=== PATIENT | female | born 1975 | race African-American/Black ===

== ENCOUNTER 2020-11-02 18:58 | Emergency (ER) | payer OTHER ==
[~2020-11-02] VITALS: Ht 170.2 cm; Wt 104.3 kg
--- NOTE | 2020-11-02 19:33 | NUR ---
TO LOBBY A/W BED AMBULATORY
[2020-11-02 20:20] LABS: HEMATOCRIT 34.7 % (36-48); HEMOGLOBIN 11.5 g/dL (12.0-16.0); MEAN CORPUSCULAR HEMOGLOBIN 31 pg (27-31); MEAN CORPUSCULAR HGB CONC 33 g/dL (33-37); MEAN CORPUSCULAR VOLUME 93.6 fL (80-94); PLATELET COUNT (AUTO) 354 K/uL (140-450); RED BLOOD CELL COUNT(AUTO) 3.71 MIL/uL (4.20-5.40); RED CELL DISTRIBUTION WIDTH 22.3 % (11.6-13.7); WHITE BLOOD COUNT (AUTO) 6.3 K/uL (4.8-10.8)
[2020-11-02] MEDS ORDERED: ONDANSETRON 4 MG/2 ML VIAL IVP ONE (20:35)
[2020-11-02] MEDS ORDERED: LACTATED RINGERS 1,000 ML IV ONE (20:35)
[2020-11-02] MEDS ORDERED: HYDROmorphone PFS 2 MG/ML SYR IVP ONE (20:35)
[2020-11-02 20:38] LABS: PROTHROMBIN TIME 9.7 secs (10.8-13.4)
[2020-11-02 20:41] LABS: ALBUMIN 3.8 g/dL (3.4-5.0); ANION GAP 14.2 (8-16); CARBON DIOXIDE 21.6 mmol/L (21-32); CREATININE 0.9 mg/dL (0.6-1.3); POTASSIUM 3.8 mmol/L (3.5-5.1); TOTAL BILIRUBIN 0.1 mg/dL (0.0-1.0)
--- NOTE | 2020-11-02 20:50 | NUR ---
PT AMBULATED TO [facility].
--- NOTE | 2020-11-02 21:00 | NUR ---
PROVIDED UA SAMPLE.
--- NOTE | 2020-11-02 21:28 | NUR ---
45 Y/O FEMALE BIB SELF FOR C/O OF RADIATING "SHARP" L SIDE ABD PAIN 10/10. RADIATES TO BACK L SIDE. ABD WAS ROUND SOFT, NON-TENDER TO TOUCH. BOWELS SOUNDS WERE ACTIVE X 4 QUADRANTS. REPORTS NO CHANGES IN BOWEL MOVEMENTS. REPORTS HAVING MILD NAUSEA. NO DIZZINESS OR VOMITING. DENIES TAKING ANY MEDS PRIOR TO ED VISIT. PMHX: PANCRETITIS, ANEMIA, THALASEMIA, GASTRIC BYPASS AND SICKLE CELL DISEASE. ALLX: ATORVASTATIN, BACLOFEN AND MORPHINE
--- NOTE | 2020-11-02 21:50 | NUR ---
20 G IV SITE TO L UPPER ARM VIA US GUIDED. IV SITE WAS PATENT. NO INFILTARTION NOTED OR C/O DISCOMFORT. FLUSHED WITH 10 ML OF 0.9%.
--- NOTE | 2020-11-02 22:33 | NUR ---
NOTIFIED DR. MCKINNEY OF PT'S C/O UNRELIEF PAIN AT THIS TIME. ER MD DR. MCKINNEY SPOKE WITH PT. NO NEW ORDERS GIVEN AT THIS TIME.
[2020-11-02 23:06] LABS: MONOCYTES % (MANUAL) 5 % (5-12)
[2020-11-02 23:07] LABS: EOSINOPHILS % (MANUAL) 10 % (0-4); LYMPHOCYTES % (MANUAL) 25 % (20-46)
--- NOTE | 2020-11-02 23:23 | NUR ---
Patient discharged with v/s stable. Written and verbal after care instructions given and explained. Patient alert, oriented and verbalized understanding of instructions. Ambulatory with steady gait. All questions addressed prior to discharge. ID band removed. Patient advised to follow up with PMD. Rx of ZOFRAN ODT given. Patient educated on indication of medication including possible reaction and side effects. Opportunity to ask questions provided and answered. IV removed, catheter intact and site benign. Applied folded 4x4 gauze and tape to stop bleeding.
[2020-11-02 23:25] VITALS: BP 144/87
== END 2020-11-02 23:25 | disposition home or self-care (01) ==
LOC: MED 18:58
DX: R10.13 Epigastric pain (principal); D57.1 Sickle-cell disease without crisis; Z87.19 Personal history of other diseases of the digestive system; Z88.6 Allergy status to analgesic agent; Z88.5 Allergy status to narcotic agent; Z88.8 Allergy status to other drugs, medicaments and biological substances
CPT/HCPCS: 36415; 80053; 83690; 84702; 85025; 85610; 86886; 86900; 86901; 96361; 96374; 96375; 99284; J1170; J2405

== ENCOUNTER 2021-08-27 21:43 | Inpatient (IN) | payer OTHER, SELFPAY ==
[~2021-08-27] VITALS: Ht 170.2 cm; Wt 108.9 kg
[2021-08-27 21:45] VITALS: BP 155/94
[2021-08-27 22:24] LABS: BASOPHILS # (AUTO) 0.1 K/uL (0.00-0.22); EOSINOPHILS # (AUTO) 0.1 K/uL (0-0.4); EOSINOPHILS % (AUTO) 1.3 % (0.0-4.0); HEMATOCRIT 33.3 % (36-48); HEMOGLOBIN 10.8 g/dL (12.0-16.0); LYMPHOCYTES # (AUTO) 1.8 K/uL (2.5-16.5); LYMPHOCYTES % (AUTO) 24.6 % (20.5-51.1); MEAN CORPUSCULAR HEMOGLOBIN 29 pg (27-31); MEAN CORPUSCULAR HGB CONC 33 g/dL (33-37); MEAN CORPUSCULAR VOLUME 87.8 fL (80-94); MONOCYTES # (AUTO) 0.3 K/uL (0.8-1.0); MONOCYTES % (AUTO) 3.8 % (1.7-9.3); NEUTROPHILS # (AUTO) 5.1 K/uL (1.8-7.7); NEUTROPHILS % (AUTO) 69.3 % (42.2-75.2); PLATELET COUNT (AUTO) 854 K/uL (140-450); RED BLOOD CELL COUNT(AUTO) 3.79 MIL/uL (4.20-5.40); RED CELL DISTRIBUTION WIDTH 19.4 % (11.6-13.7); WHITE BLOOD COUNT (AUTO) 7.3 K/uL (4.8-10.8)
--- NOTE | 2021-08-27 22:27 | NUR ---
PT PRESENTED TO THE ED FOR PRE OP CHECK IN FOR HYSTERECTOMY, PT STATED "HAVING 10 OF 10 PAIN RADIATING THROUGHOUT PELVIS, GROIN, ABD AND BACK", NO OTHER SIGNS OF ACUTE DISTRESS NOTED AT THIS TIME PMH: ENDOMETRIOSIS, GASTRIC BYPASS, 3 C SECTIONS ALLERGIES: ADVAR, ATORVASTATIN, BACLOFEN, MORPHINE
[2021-08-27 22:42] LABS: ALBUMIN 3.9 g/dL (3.4-5.0); ANION GAP 14.6 (8-16); CARBON DIOXIDE 24.4 mmol/L (21-32); CREATININE 1.2 mg/dL (0.6-1.3); TOTAL BILIRUBIN 0.3 mg/dL (0.0-1.0)
[2021-08-28 00:08] LABS: PROTHROMBIN TIME 9.5 secs (10.8-13.4)
[2021-08-28] MEDS ORDERED: HYDROmorphone PFS 2 MG/ML SYR IVP ONE (00:30)
[2021-08-28] MEDS ORDERED: ONDANSETRON 4 MG/2 ML VIAL IVP ONE (00:30)
[2021-08-28] MEDS ORDERED: LACTATED RINGERS 1,000 ML IV ONE (00:55)
[2021-08-28] MEDS ORDERED: POTASSIUM CHLORIDE 10 MEQ TABER PO PRN (01:00)
[2021-08-28] MEDS ORDERED: ACETAMINOPHEN 325 MG TAB PO PRN (01:00)
[2021-08-28] MEDS ORDERED: MAGNESIUM OXIDE 400 MG TAB PO PRN (01:00)
[2021-08-28] MEDS ORDERED: TOP100 PO (01:45)
[2021-08-28] MEDS ORDERED: ZOLP10TA1 PO (01:45)
[2021-08-28] MEDS ORDERED: TIZA4CAP PO (01:45)
[2021-08-28] MEDS ORDERED: HYDR500C PO (01:45)
[2021-08-28] MEDS ORDERED: LYR75 PO (01:45)
[2021-08-28] MEDS ORDERED: ACET-5636 PO (01:45)
[2021-08-28] MEDS ORDERED: DIPH25SG5 PO (01:45)
--- NOTE | 2021-08-28 01:55 | NUR ---
RECEIVED TELEPHONE REPORT FROM METAL MODEL BUILDERPITER SMITH.
--- NOTE | 2021-08-28 01:56 | NUR ---
REPORT FOR ADMIT GIVEN TO MST PITER VINES, PT WILL BE ADMITTED TO ROOM 111B
[2021-08-28 02:33] VITALS: BP 156/100
--- NOTE | 2021-08-28 02:33 | NUR ---
PATIENT WAS BROUGHT TO THE FLOOR VIA WHEELCHAIR. AMBULATED TO BED WITH STEADY GAIT. PT IS AAOX4, AMBULATORY AND ABLE TO MAKE NEEDS KNOWN. C/C PELVIC PAIN HX ENDOMETRIOSIS CAME IN PER RECOMMENDATION OF DR PURCELL HAS SURGERY TITUS TODAY 08/28 AT 0730 FOR HYSTERECTOMY. PT VERBALIZED UNDERSTANDING. LAST MEAL AT 2200 NPO SINCE MIDNIGHT. SKIN IS WARM, DRY AND INTACT. RESPIRATIONS ARE EQUAL AND UNLABORED ON ROOM AIR. IV ON LAC 20G. MRSA SWAB OBTAINED AND SENT TO LAB. ORIENTED PATIENT TO ROOM, STAFF, VISITING HOURS, AND CALL LIGHT. VSS. CALL LIGHT IS WITHIN REACH. WILL CONTINUE TO MONITOR.
--- NOTE | 2021-08-28 02:34 | NUR ---
Patient will be admitted to care of DR GRANGER. Admited to [facility]. Will go to room 111A. Belongings list completed. Report to PITER VINES.
[2021-08-28] MEDS: HYDROmorphone PFS 2 MG/ML SYR IVP PRN ×3 (02:46→16:34)
--- NOTE | 2021-08-28 02:46 | NUR ---
PRN DILAUDID GIVEN FOR C/C ABD PAIN / PT TOLERATED WELL.
[2021-08-28] MEDS: NACL 0.9% 1,000 ML IV SCH ×2 (02:54→13:30)
--- NOTE | 2021-08-28 05:36 | NUR ---
PT IS RESTING IN BED APPEARS TO BE ASLEEP. CHEST RISE AND FALL NOTED. CALL LIGHT IS WITHIN REACH.
--- NOTE | 2021-08-28 07:28 | NUR ---
RECEIVED REPORT FROM BOTTOM WORKER NURSE FOR CONTINUITY OF CARE, POC DISCUSSED. PT IS RESTING IN BED WITH DAUGHTER AT BEDSIDE. PT SCHEDULED FOR SURGERY AT 0730. PT IS ALERT AND ORIENTED X4, ON RA WITH CHEST RISING AND FALLING EVEN AND UNLABORED. PT IS MED SURG IN STABLE CONDITION. PT SKIN INTACT. PT HAS A LEFT AC 20G RUNNING NS @ 80 ML. ALL SAFETY MEASURES IN PLACE, CALL LIGHT WITHIN REACH. WILL CONTINUE TO MONITOR.
--- NOTE | 2021-08-28 07:28 | NUR ---
GAVE BEDSIDE REPORT TO DAY RN. PT ENDORSED IN STABLE CONDITION.
--- NOTE | 2021-08-28 07:56 | NUR ---
NONE ADMINISTERED HEP MEDICATION DUE TO TITUS PROCEDURE AT 0730. ALL SAFETY MEASURES IN PLACE. CALL LIGHT WITHIN REACH. WILL CONTINUE TO MONITOR.
[2021-08-28 08:00] VITALS: BP 109/81
--- NOTE | 2021-08-28 08:17 | NUR ---
ROUNDED ON PT, PT IS ASLEEP IN BED WITH NO ACUTE S/S OF DISTRESS. PT CHEST RISING AND FALLING EVEN AND UNLABORED. PT DAUGHTER AT BEDSIDE. COMMUNICATION BOARD UPDATED. ALL SAFETY MEASURES IN PLACE, CALL LIGHT WITHIN REACH. WILL CONTINUE TO MONITOR
--- NOTE | 2021-08-28 08:50 | NUR ---
PRN PAIN MEDICATION ADMINISTERED PER MD ORDER, PT TOLERATED ADMINISTRATION. PT IS STABLE IN BED. ALL SAFETY MEASURES IN PLACE, CALL LIGHT WITHIN REACH. WILL CONTINUE TO MONITOR.
--- NOTE | 2021-08-28 09:16 | NUR ---
PATIENT HAS BEEN SCREENED AND CATEGORIZED LOW NUTRITION RISK. PATIENT WILL BE SEEN WITHIN 7 DAYS OF ADMISSION. 09/03/[address]
--- NOTE | 2021-08-28 09:52 | NUR ---
PT HAS BEEN PICKED UP AND TAKEN TO THE OR IN STABLE CONDITION.
[2021-08-28] MEDS ORDERED: diphenhydrAMINE 50 MG/ML VIAL IVP PRN ×2 (12:20→12:55)
[2021-08-28] MEDS: LACTATED RINGERS 1,000 ML IV SCH ×2 (12:20→20:40)
[2021-08-28] MEDS ORDERED: MEPERIDINE 25 MG/ML SYR IVP PRN (12:20)
[2021-08-28] MEDS ORDERED: ONDANSETRON 4 MG/2 ML VIAL IVP PRN ×2 (12:20→12:55)
[2021-08-28] MEDS ORDERED: fentaNYL citrate 0.05 MG/ML VIAL IVP PRN (12:20)
[2021-08-28] MEDS ORDERED: PROPOFOL 200 MG/20 ML VIAL IV ONE (12:49)
[2021-08-28] MEDS ORDERED: PHENYLEPHRINE 10 MG/ML VIAL ONE (12:49)
[2021-08-28] MEDS ORDERED: LIDOCAINE 2% 100 MG/5 ML SYR IVP ONE (12:49)
[2021-08-28] MEDS ORDERED: ONDANSETRON 4 MG/2 ML VIAL ONE (12:49)
[2021-08-28] MEDS ORDERED: SUCCINYLCHOLINE CHLORIDE 200 MG/10 ML VIAL IVP ONE (12:49)
[2021-08-28] MEDS ORDERED: METOCLOPRAMIDE 10 MG/2 ML INJ VIAL ONE (12:49)
[2021-08-28] MEDS ORDERED: NEOSTIGMINE 1:1000 10 MG/10 ML VIAL ONE (12:49)
[2021-08-28] MEDS ORDERED: GLYCOPYRROLATE 0.2 MG/ML VIAL ONE (12:49)
[2021-08-28] MEDS ORDERED: ROCURONIUM 50 MG/5 ML VIAL IV ONE (12:49)
[2021-08-28] MEDS ORDERED: NALOXONE 0.4 MG/ML VIAL IVP PRN ×2 (12:55)
[2021-08-28] MEDS ORDERED: SIMETHICONE 80 MG TAB.CHEW PO PRN (13:30)
--- NOTE | 2021-08-28 13:36 | NUR ---
DC PLANNING: THE PATIENT ADMITTED THROUGH THE ER WITH C/O WORSENING PELVIC PAIN SECONDARY TO ENDOMETRIOSIS. THE PATIENT WAS SCHEDULED TO HAVE A HYSTERECTOMY TOMORROW AND WAS DIRECTED BY HER CLIP RIVETER TO COME TO THE ER. SHE ALSO HAS A H/O SICKLE CELL DISEASE WITH MULTIPLE HOSPITALIZATIONS AT [facility]. THE PATIENT WENT TO SURGERY TODAY AND HAD A YUMIKO/BSO, IVF'S AND PAIN MEDS ORDERED FOR POST-OP MANAGEMENT. ANTICIPATE THAT THE PATIENT WILL DC TO HOME WHEN CLINICALLY STABLE WITH CONTINUATION OF HOME MEDICATIONS. CM WILL FOLLOW FOR NEEDS. Addendum: 08/29/21 at 1052 by Sherin Yates CM DC PLANNING: CM ATTEMPTED TO SPEAK WITH THE PATIENT AT BEDSIDE, WAS ABLE TO CONFIRM THAT THE PATIENT LIVES IN A SINGLE STORY HOUSE WITH HER FAMILY, PATIENT NOT ANSWERING ANY FURTHER QUESTIONS. S/P YUMIKO BSO, HAD AN EPISODE OF HYPOTENSION YESTERDAY AND WAS GIVEN A NS BOLUS. CONTINUES TO C/O PAIN AND IS BEING GIVEN TORADOL AND DILAUDID IV. ORDERS FOR REGULAR DIET IN PLACE, PATIENT DID AMBULATE YESTERDAY TO THE BATHROOM YESTERDAY. DC PLAN IS FOR THE PATIENT TO RETURN HOME WITH FAMILY, CM WILL FOLLOW FOR NEEDS. Addendum: 08/31/21 at 1546 by Shaniqua Germain CM DC PLANNING PATIENT IS A 45-YEAR-OLD FEMALE ADMITTED ON 08/28/2021 AT [facility]/ED DUE TO ABDOMINAL AND PELVIC PAIN. SW MET WITH PATIENT AT BEDSIDE TO DISCUSS AND GATHER PATIENT'S COLLATERAL INFORMATION. PER PATIENT SHE LIVES AT HOME IN [facility] WITH HER ADULT DAUGHTERS JEREMY RAZO. PATIENT REPORTED BEEN ACTIVE AND INDEPENDENT AT HOME AND NOT HAVING OR NEEDING DME AT THESE TIME. PATIENT REPORTED NOT HAVING ADVANCE DIRECTIVES WAS NOT INTERESTED ON GETTING INFORMATION PACKET PROVIDED BY ANGEL LUIS AT THE TIME OF VISIT. PATIENT REPORTED NOT HAVING ANY ISSUES WITH GETTING OR TAKING ANY OF HER MEDICATIONS. PATIENT REPORTED ABLE TO GET ALL HER MEDICATIONS WHEN PRESCRIBED BY MD AT [facility] IN [employer] AT [address] [place] [address] IN [place] BY HER HOUSE. PATIENT STATED THAT HER PRIMARY DOCTOR IS MD. ADRIA FARIAS WHEN SW OFFERED TO SCHEDULED A FOLLOW UP APPOINMENT WITH PATIENT PCP PATIENT DECLINED AND STATED THAT SHE WILL BE MAKING HER OWN FOLLOW UP APPOINMENT AFTER SHE DISCHARGES FROM [facility]. PATIENT STATED THAT HER DAUGTHER WILL BE PICKING HER UP AND TAKE HER HOME WHEN SHE IS READY FOR DC. SW WILL FOLLOW UP WITH PATIENT NEEDED.
[2021-08-28] MEDS ORDERED: LORazepam 2 MG/ML VIAL IM/IVP PRN (13:40)
--- NOTE | 2021-08-28 14:45 | NUR ---
PT ARRIVED FROM OR IN STABLE CONDITION; PT ABD DRESSING IS DRY AND INTACT. PT HAS A JONES IN PLACE DRAINING CLEAR YELLOW URINE. PT VITAL SIGNS ARE WNL. SCDS ARE HOOKED UP AND STARTED. PT EDUCATION PROVIDED ON UPCOMING PLAN. ALL SAFETY MEASURES IN PLACE, CALL LIGHT WITHIN REACH. WILL CONTINUE TO MONITOR.
[2021-08-28] MEDS: ACETAMINOPHEN 100 ML IV SCH ×2 (15:23→22:43)
[2021-08-28] MEDS: KETOROLAC 30 MG/ML VIAL IVP SCH ×2 (15:23→21:40)
[2021-08-28 16:00] VITALS: BP 129/85
--- NOTE | 2021-08-28 16:30 | NUR ---
PT POST OP VITAL SIGNS ARE COMPLETED AND PT REMAINED STABLE. ALL SAFETY MEASURES IN PLACE, CALL LIGHT WITHIN REACH. WILL CONTINUE TO MONITOR.
--- NOTE | 2021-08-28 16:34 | NUR ---
PRN PAIN MEDICATION ADMINISTERED PER MD ORDER, PT TOLERATED ADMINISTRATION. ALL SAFETY MEASURES IN PLACE, CALL LIGHT WITHIN REACH.
--- NOTE | 2021-08-28 16:47 | NUR ---
PT REPORTS ITCHING, PRN MEDICATION ADMINISTERED PER MD ORDER. PT TOLERATED ADMINISTRATION. ALL SAFETY MEASURES IN PLACE, CALL LIGHT WITHIN REACH. WILL CONTINUE TO MONTIOR.
[2021-08-28] MEDS: HYDROcodone/APAP 5/325 MG 1 TAB TAB PO PRN (17:57)
--- NOTE | 2021-08-28 17:57 | NUR ---
PRN PAIN MEDICATION ADMINISTERED PER MD ORDER, PT TOLERATED ADMINISTRATION. PT IS STABLE
--- NOTE | 2021-08-28 19:00 | NUR ---
PT ENDORSED TO TIMBER INSPECTOR NURSE IN STABLE CONDITION, POC DISCUSSED.
--- NOTE | 2021-08-28 19:30 | NUR ---
RECEIVED REPORT FROM AM NURSE. PATIENT IS ASLEEP. NO S/S OF RESPIRATORY DISTRESS. BREATHING REGULAR NON LABORED. IVF NS RUNNING AT 80 ML/HR. CALL LIGHT WITHIN REACH. ALL SAFETY MEASURES ARE IN PLACE. WILL CONTINUE TO MONITOR.
--- NOTE | 2021-08-28 21:49 | NUR ---
DUE SCHEDULED MEDS GIVEN.
[2021-08-29] VITALS: BP 88/52
--- NOTE | 2021-08-29 00:12 | NUR ---
PATIENT BP 88/52. PAGED DR. MCMAHON. CHAIRMAN PRESIDENT AND CHIEF EXECUTIVE OFFICER CALLED BACK AT AROUND [phone] WITH ORDER OF 500 NS BOLUS. ADMINISTERED.
[2021-08-29] MEDS: NACL 0.9% 1,000 ML IV SCH ×2 (00:54→14:28)
[2021-08-29] MEDS: NACL 0.9% 500 ML IV SCH ×6 (01:15→03:50)
--- NOTE | 2021-08-29 01:46 | NUR ---
500 ML NS BOLUS NOT GIVEN. ORDERED ONE TIME BOLUS ONLY.
[2021-08-29] MEDS: HYDROmorphone PFS 2 MG/ML SYR IVP PRN ×3 (02:25→14:38)
[2021-08-29] MEDS: KETOROLAC 30 MG/ML VIAL IVP SCH ×4 (03:05→21:22)
--- NOTE | 2021-08-29 04:06 | NUR ---
PATIENT IS IN SEVERE PAIN MEDICATION NOT DUE YET. PLACED A CALL TO DR. PURCELL. AWAITING FOR CALL BACK.
[2021-08-29 04:10] VITALS: BP 135/81
--- NOTE | 2021-08-29 04:12 | NUR ---
NO REPLY FROM DR. PURCELL. PAGED DR. CARLIN, CALLED BACK AT [phone] WITH ORDER OF DILAUDID 0.5MG ONE TIME. ADMINISTERED MEDICATION ORDERED.
[2021-08-29] MEDS ORDERED: HYDROmorphone 1 MG/ML AMP IVP SCH (04:20)
[2021-08-29] MEDS ORDERED: HYDROmorphone 1 MG/ML AMP ONE (04:22)
[2021-08-29] MEDS: LACTATED RINGERS 1,000 ML IV SCH (05:00)
[2021-08-29 06:24] LABS: BASOPHILS % (AUTO) 0.7 % (0.0-2.0); EOSINOPHILS % (AUTO) 0.6 % (0.0-4.0); HEMATOCRIT 25.6 % (36-48); HEMOGLOBIN 8.4 g/dL (12.0-16.0); LYMPHOCYTES # (AUTO) 1.3 K/uL (2.5-16.5); LYMPHOCYTES % (AUTO) 20.6 % (20.5-51.1); MEAN CORPUSCULAR HEMOGLOBIN 29 pg (27-31); MEAN CORPUSCULAR HGB CONC 33 g/dL (33-37); MEAN CORPUSCULAR VOLUME 88.3 fL (80-94); MONOCYTES # (AUTO) 0.2 K/uL (0.8-1.0); MONOCYTES % (AUTO) 3.6 % (1.7-9.3); NEUTROPHILS # (AUTO) 4.7 K/uL (1.8-7.7); NEUTROPHILS % (AUTO) 74.5 % (42.2-75.2); PLATELET COUNT (AUTO) 723 K/uL (140-450); RED CELL DISTRIBUTION WIDTH 19.1 % (11.6-13.7); WHITE BLOOD COUNT (AUTO) 6.3 K/uL (4.8-10.8)
[2021-08-29 06:38] LABS: ANION GAP 13.4 (8-16); CARBON DIOXIDE 22.3 mmol/L (21-32); CREATININE 0.9 mg/dL (0.6-1.3); POTASSIUM 3.7 mmol/L (3.5-5.1)
[2021-08-29] MEDS: ACETAMINOPHEN 100 ML IV SCH ×2 (06:48→14:28)
--- NOTE | 2021-08-29 07:28 | NUR ---
PT HAS BEEN ENDORSED BY NAVIGATING OFFICER NURSE FOR CONTINUITY OF CARE, POC DISCUSSED. PT IS RESTING IN BED WITH NO ACUTE S/S OF DISTRESS, ON RA WITH CHEST RISING AND FALLING. PT HAS A JONES CATH IN PLACE. PT HAS A LEFT AC 20G RUNNING NS @ 80 ML. ABD INCISION DRESSING IS INTACT. MILDRED PATEL AT BEDSIDE ASSESSING INCISION. ALL SAFETY MEASURES IN PLACE, CALL LIGHT WITHIN REACH. WILL CONTINUE TO MONITOR.
--- NOTE | 2021-08-29 07:39 | NUR ---
INFORMED MD ABOUT PTS CONTINUED PAIN.
[2021-08-29 08:00] VITALS: BP 110/70
[2021-08-29] MEDS: DOCUSATE SODIUM 100 MG GELCAP PO SCH (08:58)
--- NOTE | 2021-08-29 09:06 | NUR ---
TITUS MEDICATION ADMINISTERED PER MD ORDER, PT TOLERATED ADMINISTRATION. PT EDUCATION PROVIDED AND PT ABLE TO NOD HEAD. PT UNABLE TO ANSWER ALL QUESTIONS, PT MOANING AND WHEN ASKED WHAT HER PAIN LEVEL WAS, RATED IT A 10. BP THAT THE SHIP PILOT DISPATCHER TOOK WAS 95/63, REASSESSMENT OF BP AND IT WAS 110/70. PRN DILAUDID ADMINISTERED PER MD ORDER, PT TOLERATED ADMINISTRATION. IV IS PATENT AND INTACT.
--- NOTE | 2021-08-29 09:48 | NUR ---
PT IS SITTING UP IN BED, EATING BREAKFAST. PT REQUESTED ICE CHIPS, HOT WATER AND TEA. ALL NEEDS WERE MET. ALL SAFETY MEASURES IN PLACE, CALL LIGHT WITHIN REACH. WILL CONTINUE TO MONITOR.
--- NOTE | 2021-08-29 10:09 | NUR ---
PT CALLED NURSING STATION, UPON ENTERING THE ROOM PATIENT WAS ASLEEP WITH CHEST RISING AND FALLING EVEN AND UNLABORED.
[2021-08-29] MEDS ORDERED: MORPHINE PRES FREE 10 MG/10 ML AMP IV ONE (10:30)
[2021-08-29] MEDS ORDERED: PHENYLEPHRINE 10 MG/ML VIAL ONE (10:30)
[2021-08-29] MEDS ORDERED: PROPOFOL 200 MG/20 ML VIAL IV ONE (10:30)
[2021-08-29] MEDS ORDERED: SEVOFLURANE 250 ML BTL INH ONE (10:30)
[2021-08-29] MEDS ORDERED: ROCURONIUM 50 MG/5 ML VIAL IV ONE (10:30)
[2021-08-29] MEDS ORDERED: ceFAZolin 1,000 MG VIAL ONE (10:30)
[2021-08-29] MEDS ORDERED: SUCCINYLCHOLINE CHLORIDE 200 MG/10 ML VIAL IVP ONE (10:30)
[2021-08-29] MEDS ORDERED: LIDOCAINE 2% 100 MG/5 ML SYR IVP ONE (10:30)
[2021-08-29] MEDS ORDERED: ETOMIDATE 20 MG/10 ML VIAL IVP ONE (10:30)
[2021-08-29] MEDS ORDERED: BUPIVACAINE-MPF 0.75% 10 ML VIAL INJ ONE (10:30)
[2021-08-29] MEDS: HYDROcodone/APAP 5/325 MG 1 TAB TAB PO PRN ×2 (11:11→16:49)
--- NOTE | 2021-08-29 11:11 | NUR ---
PRN NORCO ADMINISTERED PER MD ORDER, PT TOLERATED ADMINISTRATION. PT MOANING IN PAIN. WILL INFORM THE MD THAT THE CURRENT PRN MEDICATIONS ARE NOT EFFECTIVE.
--- NOTE | 2021-08-29 11:24 | NUR ---
SPOKE WITH DR. MCMAHON REGARDING PT PAIN AND MD GAVE TORB ORDER.
--- NOTE | 2021-08-29 14:45 | NUR ---
TITUS MEDICATION AND PRN MEDICATION ADMINISTERED PER MD ORDER, PT TOLERATED ADMINISTRATION. EDUCATION PROVIDED ON IMPORTANCE OF WALKING TO PASS GAS, PT STATED "HOW DO YOU EXPECT ME TO WALK WHEN IM IN SO MUCH PAIN" INFORMED THEM ABOUT MDS CONCERN OF SEDATION. PT VOICED HER FRUSTRATION. JONES CATH WAS REMOVED, CATH INTACT. PT GIVEN INCENTIVE SPIROMETER AND EDUCATED, PT STATED SHE WILL ATTEMPT TO USE THAT. NEW IV FLUIDS STARTED ON PT. ALL SAFETY MEASURES IN PLACE, CALL LIGHT WITHIN REACH. WILL CONTINUE TO MONITOR.
[2021-08-29 16:00] VITALS: BP 94/70
--- NOTE | 2021-08-29 16:57 | NUR ---
PRN NORCO ADMINISTERED PER MD ORDER, CHARGE NURSE SPOKE WITH PT REGARDING WHY MD DOES NOT WANT TO ORDER MORE DILAUDID; DUE TO PATIENTS SEDATION. ALL SAFETY MEASURES IN PLACE, CALL LIGHT WITHIN REACH.
--- NOTE | 2021-08-29 18:08 | NUR ---
PT BP IS 96/57, WILL CONTINUE TO MONITOR. PT REPORTS PAIN AND EDUCATED PT ON NOT BEING ABLE TO GIVE PAIN MEDICATION DUE TO DECREASED BP. WILL CONTINUE TO MONITOR.
--- NOTE | 2021-08-29 19:39 | NUR ---
PT ENDORSED TO DISTILLERY MILLER HELPER NURSE FOR CONTINUITY OF CARE. POC DISCUSSED
--- NOTE | 2021-08-29 19:42 | NUR ---
PT HAS BEEN ENDORSED BY DAY SHIFT NURSE FOR CONTINUITY OF CARE, PLAN OF CARE DISCUSSED.PT AWAKE, ALERT AND ORIENTED.NO S/SX OF DISTRESS, ON RA.ABDOMINAL INCISION DRESSING IS DRY & INTACT.ALL SAFETY MEASURES IN PLACE, CALL LIGHT WITHIN REACH. WILL CONTINUE TO MONITOR.
--- NOTE | 2021-08-29 21:25 | NUR ---
DUE MEDS GIVEN. PT TOLERATED WELL. PT COMPLAINED OF PAIN ON HER SURGICAL SITE.ALL SAFETY PRECAUTION IN PLACE. CALL LIGHT WITHIN REACH. WILL CONTINUE TO MONITOR.
[2021-08-30] VITALS: BP 120/81
[2021-08-30] MEDS: HYDROmorphone PFS 2 MG/ML SYR IVP PRN ×3 (00:50→08:00)
[2021-08-30] MEDS: HYDROcodone/APAP 5/325 MG 1 TAB TAB PO PRN ×2 (02:36→16:30)
--- NOTE | 2021-08-30 02:36 | NUR ---
PT COMPLAINED OF PAIN. PRN NORCO GIVEN.WILL REASSESS PT.CALL LIGHT WITHIN REACH. WILL CONTINUE TO MONITOR.
[2021-08-30] MEDS: NACL 0.9% 1,000 ML IV SCH ×2 (03:00→15:40)
--- NOTE | 2021-08-30 03:30 | NUR ---
PATIENT C/O ABD PAIN 08/05 NORCO WAS NOT EFFECTIVE, DILAUDID 1 MG IVP WAS PULLED OUT FROM THE [place] CELL TO FOUND OUT IN EM[facility] THAT PATIENT WAS NOT YET DUE UNTIL 045, RN LEFT MESSAGE TO DR. MCMAHON FOR BREAKTHROUGH PAIN MEDICATION, STILL WAITING FOR MD TO CALL BACK, DILAUDID DOSE WAS HELD TO LATER ADMINISTRATION.
[2021-08-30 04:00] VITALS: BP 153/81
--- NOTE | 2021-08-30 04:37 | NUR ---
NO REPLY FROM DR. MCMAHON RN DECIDED TO GIVE THE NEXT DOSE OF DIALUDID 1 MG 12 MINUTES EARLY.
--- NOTE | 2021-08-30 07:07 | NUR ---
PT STABLE. NO OTHER ACUTE EVENTS THROUGHOUT THE NIGHT.PT NOT IN ANY DISTRESS AND NO COMPLAINS AT THIS TIME. ALL NEEDS ATTENDED.WILL ENDORSE TO AM SHIFT NURSE. WILL CONTINUE TO MONITOR.
--- NOTE | 2021-08-30 07:24 | NUR ---
ALL REPORTS WERE GIVEN TO INCOMING RN, TRANSFER OF CARE WAS ENDORSED.
[2021-08-30 08:29] LABS: BASOPHILS % (AUTO) 0.3 % (0.0-2.0); EOSINOPHILS # (AUTO) 0.1 K/uL (0-0.4); HEMATOCRIT 25.2 % (36-48); HEMOGLOBIN 8.3 g/dL (12.0-16.0); LYMPHOCYTES # (AUTO) 0.8 K/uL (2.5-16.5); LYMPHOCYTES % (AUTO) 13.2 % (20.5-51.1); MEAN CORPUSCULAR HEMOGLOBIN 29 pg (27-31); MEAN CORPUSCULAR HGB CONC 33 g/dL (33-37); MEAN CORPUSCULAR VOLUME 88.8 fL (80-94); MONOCYTES # (AUTO) 0.2 K/uL (0.8-1.0); MONOCYTES % (AUTO) 3.4 % (1.7-9.3); NEUTROPHILS # (AUTO) 5.2 K/uL (1.8-7.7); NEUTROPHILS % (AUTO) 81.1 % (42.2-75.2); PLATELET COUNT (AUTO) 827 K/uL (140-450); RED BLOOD CELL COUNT(AUTO) 2.84 MIL/uL (4.20-5.40); RED CELL DISTRIBUTION WIDTH 19.1 % (11.6-13.7); WHITE BLOOD COUNT (AUTO) 6.4 K/uL (4.8-10.8)
[2021-08-30] MEDS ORDERED: KETOROLAC 30 MG/ML VIAL IM PRN (08:35)
[2021-08-30 08:37] LABS: ANION GAP 18.1 (8-16); CARBON DIOXIDE 20.4 mmol/L (21-32); CREATININE 0.8 mg/dL (0.6-1.3); POTASSIUM 3.5 mmol/L (3.5-5.1)
[2021-08-30] MEDS ORDERED: diphenhydrAMINE 50 MG/ML VIAL IVP PRN (08:50)
[2021-08-30] MEDS ORDERED: NALOXONE 0.4 MG/ML VIAL IVP SCH (10:50)
[2021-08-30 12:00] VITALS: BP 168/92
--- NOTE | 2021-08-30 12:54 | NUR ---
LATE ENTRY- LR INV FLUIDS DISCONTINUED AT 0234.
[2021-08-30] MEDS: DOCUSATE SODIUM 100 MG GELCAP PO SCH (13:38)
--- NOTE | 2021-08-30 16:37 | NUR ---
Patient;s blood pressure elevated, notified Physician awaiting orders.
--- NOTE | 2021-08-30 19:25 | NUR ---
PT HAS BEEN ENDORSED BY DAY SHIFT NURSE FOR CONTINUITY OF CARE.PT AWAKE, ALERT AND ORIENTED.NO S/SX OF DISTRESS, ON RA.ABDOMINAL INCISION DRESSING IS DRY & INTACT.FAMILY AT BEDSIDE.ALL SAFETY MEASURES IN PLACE, CALL LIGHT WITHIN REACH. WILL CONTINUE TO MONITOR.
[2021-08-30 20:00] VITALS: BP 108/69
--- NOTE | 2021-08-30 21:00 | NUR ---
DUE MEDS GIVEN. PT TOLERATED WELL.ASSISTED PT TO BEDSIDE COMMODE.ALL SAFETY PRECAUTION IN PLACE. CALL LIGHT WITHIN REACH. WILL CONTINUE TO MONITOR.
--- NOTE | 2021-08-30 23:15 | NUR ---
PT ASLEEP. VISIBLE CHEST RISE AND FALL NOTED. CALL LIGHT WITHIN REACH. WILL CONTINUE TO MONITOR.
[2021-08-31 04:00] VITALS: BP 110/67
[2021-08-31] MEDS: NACL 0.9% 1,000 ML IV SCH ×2 (04:00→17:48)
--- NOTE | 2021-08-31 06:16 | NUR ---
PT STABLE. NO ACUTE EVENTS THROUGHOUT THE NIGHT.PT NOT IN ANY DISTRESS AND NO COMPLAINS AT THIS TIME. ALL NEEDS ATTENDED.WILL ENDORSE TO AM SHIFT NURSE.
[2021-08-31 06:45] LABS: ANION GAP 15.2 (8-16); CARBON DIOXIDE 20.7 mmol/L (21-32); CREATININE 1.3 mg/dL (0.6-1.3); POTASSIUM 3.9 mmol/L (3.5-5.1)
[2021-08-31 07:15] LABS: BASOPHILS % (AUTO) 0.2 % (0.0-2.0); EOSINOPHILS # (AUTO) 0.2 K/uL (0-0.4); EOSINOPHILS % (AUTO) 5.1 % (0.0-4.0); HEMATOCRIT 21.3 % (36-48); LYMPHOCYTES # (AUTO) 1.2 K/uL (2.5-16.5); LYMPHOCYTES % (AUTO) 30.4 % (20.5-51.1); MEAN CORPUSCULAR HEMOGLOBIN 29 pg (27-31); MEAN CORPUSCULAR HGB CONC 33 g/dL (33-37); MONOCYTES # (AUTO) 0.2 K/uL (0.8-1.0); MONOCYTES % (AUTO) 6.2 % (1.7-9.3); NEUTROPHILS # (AUTO) 2.3 K/uL (1.8-7.7); NEUTROPHILS % (AUTO) 58.1 % (42.2-75.2); PLATELET COUNT (AUTO) 665 K/uL (140-450); RED BLOOD CELL COUNT(AUTO) 2.39 MIL/uL (4.20-5.40); RED CELL DISTRIBUTION WIDTH 18.8 % (11.6-13.7)
--- NOTE | 2021-08-31 07:34 | NUR ---
PT ENDORSED TO AM SHIFT NURSE FOR CONTINUITY OF CARE.PT STABLE.SIGNING OFF
--- NOTE | 2021-08-31 08:58 | NUR ---
Patient's hemoglobin at 7.0 notified Physician and awaiting orders.
[2021-08-31] MEDS: oxyCODONE/APAP 5/325 MG 1 TAB TAB PO PRN ×2 (10:08→18:23)
[2021-08-31] MEDS: LORATADINE 10 MG TAB PO SCH (10:08)
[2021-08-31] MEDS: DOCUSATE SODIUM 100 MG GELCAP PO SCH (10:08)
[2021-08-31 12:00] VITALS: BP 92/61
[2021-08-31] MEDS: HYDROcodone/APAP 10/325 MG 1 TAB TAB PO PRN ×2 (13:59→20:53)
--- NOTE | 2021-08-31 15:43 | NUR ---
PATIENT IS A 45-YEAR-OLD FEMALE ADMITTED ON 08/28/2021 AT [facility]/ED DUE TO ABDOMINAL AND PELVIC PAIN. SW MET WITH PATIENT AT BEDSIDE TO DISCUSS AND GATHER PATIENT'S COLLATERAL INFORMATION. PER PATIENT SHE LIVES AT HOME IN [facility] WITH HER ADULT DAUGHTERS JEREMY RAZO. PATIENT REPORTED BEEN ACTIVE AND INDEPENDENT AT HOME AND IS NOT HAVING OR NEEDING DME AT THESE TIME. PATIENT REPORTED NOT HAVING ADVANCE DIRECTIVES AND WAS NOT INTERESTED ON GETTING INFORMATION PACKET PROVIDED BY ANGEL LUIS AT THE TIME OF VISIT. PATIENT REPORTED NOT HAVING ANY ISSUES WITH GETTING OR TAKING ANY OF HER MEDICATIONS. PATIENT REPORTED ABLE TO GET ALL HER MEDICATIONS WHEN PRESCRIBED BY MD AT [facility] IN [employer] AT [address] IN [place] BY HER HOUSE. PATIENT STATED THAT HER PRIMARY DOCTOR IS . ADRIA FARIAS WHEN ANGEL LUIS OFFERED TO SCHEDULED A FOLLOW UP APPOINTMENT WITH PATIENT PCP PATIENT DECLINED AND STATED THAT SHE WILL BE MAKING HER OWN FOLLOW UP APPOINTMENT AFTER SHE DISCHARGES FROM [facility]. PATIENT STATED THAT HER DAUGTHER WILL BE PICKING HER UP AND TAKE HER HOME WHEN SHE IS READY FOR DC. SW WILL FOLLOW UP WITH PATIENT NEEDED.
--- NOTE | 2021-08-31 19:06 | NUR ---
Patient complained of having urinary retention and not urinating. Called and left message for Dr Krueger and awaiting orders to place martinez as she has residual of 784.
--- NOTE | 2021-08-31 19:30 | NUR ---
RECEIVED BEDSIDE REPORT FROM DAY RN FOR CONTINUITY OF CARE. PER DAY RN KWASI PATIENT STARTED COMPLAINING OF NOT ABLE TO URINATE AND BLADDER SCAN WAS DONE AND SHOWING THAT THE PATIENT HAS 700 CC IN THE BLADDER. PER RN KWASI HE PAGED MD AND AWAITING FOR MD TO RESPOND. RECEIVED PATIENT A/A/OX4, SITTING UP IN BED COMPLAINING OF PAIN ON HER ABDOMINAL SURGERY SITE. SECOND UNIT OF BLOOD TRANSFUSING. FAMILY AT THE BEDSIDE AND ALSO COMPLAINING ABOUT THE PT BEING IN PAIN AND THE PT URINE RETENTION. PATIENT REQUESTED TO PLACE A JONES CATHETER. PATIENT AND THE FAMILY MADE AWARE THAT I'LL PAGE THE UNIFORM CAP OPERATOR MD SCHMIDT TO GET AN ORDER FOR JONES CATHETER PLACEMENT AND TO GET A PRN IV MEDICATION ORDER FOR THE PATIENT. CALL LIGHT WITHIN REACH WILL CONTINUE POC .
--- NOTE | 2021-08-31 19:50 | NUR ---
REINALDO PATEL AND DR HILL IS LIFTS AND CRANES INSPECTOR TONIGHT FOR DR MCMAHON. MADE AWARE OF ALL THE PATIENT REQUEST AND COMPLAINT. OBTAIN AN ORDER TO PLACE A JONES CATHETER BUT PER DR HILL HE WILL NOT GIVE AN ORDER FOR IV PAIN MEDICATION AND WILL JUST CONTINUE SAME PRN MEDICATIONS FOR THE PATIENT. PATIENT AND HER FAMILY MADE AWARE OF WHAT DR HILL SAID AND ORDERED.
[2021-08-31 20:00] VITALS: BP 147/92
--- NOTE | 2021-08-31 20:10 | NUR ---
PLACED 16 DIVEHI JONES CATHETER AND NOTED THAT 600 CC OTILIA URINE WITH SEDIMENTS CAME OUT. PATIENT AND HER FAMILY REQUESTED AGAIN TO CHECK THE PATIENT URINE FOR UTI. EXPLAINED TO THE FAMILY AND PATIENT THAT I WILL NEED TO GET AN ORDER FOR URINALYSIS FROM THE DOCTOR. PATIENT DAUGHTER STATED WHY CAN'T WE JUST CHECK THE URINE RIGHT ON THE SPOT. EXPLAINED IT TO THE FAMILY AND PT THAT I NEED TO GET AN ORDER FROM MD SO WE CAN SEND THE URINE SPECIMEN TO THE LAB.
--- NOTE | 2021-08-31 20:45 | NUR ---
PATIENT COMPLAINING OF PAIN ON HER IV SITE ON THE LT HAND GAUGE 24 WHERE THE BLOOD IS INFUSING. PATIENT IDS HARD STICK AND WAS POKED SO MANY TIMES ALREADY. NO INFILTRATION NOTED AND EXPLAINED TO THE PATIENT AND HER FAMILY THAT THE IV SITE IS JUST SENSITIVE BECAUSE IT'S A SMALL CATHETER GAUGE AND BLOOD USUALLY SHOULD BE INFUSING ON A BIGGER IV GAUGE. ASSURED THE PATIENT THAT THE IV IS NOT INFILTRATED AND WILL KEEP ON OBSERVING IT. PATIENT REQUESTED TO GET AN ORDER FROM THE DOCTOR TO PLACE A MID LINE. PT STATED " NURSES KEEP TELLING ME THAT I NEEDED A MID LINE BUT NO ONE IS TELLING THE DOCTOR". PATIENT AND HER FAMILY MADE AWARE THAT I WILL PAGE THE SYSTEMS APPLICATIONS PROGRAMMING LEAD MD FOR THEIR REQUEST. ASSESSED THE PATIENT INCISION SITE ON HER ABDOMEN. PATIENT WOUND IS OPEN WITH STERI STRIPS. JUST MINIMAL OOZING NOTED ON THE MIDDLE INCISION. WILL CONTINUE TO OBSERVE.
--- NOTE | 2021-08-31 20:55 | NUR ---
PATIENT C/O 9/10 PAIN ON HER INCISION SITE. PRN NORCO GIVEN ORDERED. PATIENT WAS ALSO MEDICATED 2 HOURS AGO BY DAY RN WITH PERCOCET. WILL CONTINUE OBSERVATION.
[2021-08-31] MEDS ORDERED: ACETAMINOPHEN 325 MG TAB PO PRN (21:00)
--- NOTE | 2021-08-31 21:00 | NUR ---
OBTAIN AN ORDER FOR MID LINE PLACEMENT. EXPLAINED TO THE PATIENT AND FAMILY THAT IT WILL BE DONE TOMORROW. BOTH VERBALIZED UNDERSTANDING. MD NEEDS TO SIGN THE INFORM CONSENT FIRST.
--- NOTE | 2021-08-31 21:20 | NUR ---
PATIENT SECOND UNIT OF BLOOD IS DONE. PATIENT HAS A TEMPERATURE OF 101.2,BP- 162/107, HR-110, RR-20, SATING 100% ON RA. NO TRANSFUSION REACTION NOTED. PT A/A/OX4. ANA MARIA PHILLIPS MD.
--- NOTE | 2021-08-31 21:41 | NUR ---
Texted Dr Nicole for oncall. Let Dr Nicole know that pt has 101.2 fever after 2 units of blood transfusion, pt has no other symptoms, aaox4. Also, family at bedside requested to have UA; pt has martinez cath. Dr Nicole ordered UA and tylenol for fever. Will let primary RN know
--- NOTE | 2021-08-31 21:45 | NUR ---
PITER DANIEL AT THE NURSE STATION AND ALSO WAS REQUESTED BY THE FAMILY TO SPEAK TO. PITER DANIEL HELPED ME AND TEXTED DR HILL REGARDING THE PATIENT HAVING FEVER AFTER THE SECOND UNIT OF BLOOD TRANSFUSION AND ALSO TO OBTAIN AN ORDER TO SEND THE PATIENT URINE FOR URINALYSIS. DR HILL TEXTED BACK AND AWARE THAT THE PATIENT IS HAVING FEVER AND JUST GAVE A TELEPHONE ORDER FOR THE URINALYSIS.
--- NOTE | 2021-08-31 22:00 | NUR ---
FLUSHED THE PATIENT IV ON THE LT HAND AND PT COMPLAINING OF PAIN. OFFERED TO DC THE IV BUT THE PATIENT REFUSED.
--- NOTE | 2021-08-31 22:20 | NUR ---
RE CHECKED THE PATIENT TEMPERATURE. LATEST 100.2 . OFFERED TO GIVE PATIENT A ICE PACK FOR COOLING MEASURE BUT THE PATIENT REFUSED. ALSO INSTRUCTED THE PATIENT NOT TO BUNDLE UP WITH BLANKET. PROVIDED SHEET FOR THE PATIENT AND ASKED THE PT PERMISSION IF ITS OF TO TAKE THE 2 BLANKETS OFF OF HER SO SHE CAN COOL DOWN . PATIENT REFUSED AND STATED SHE'S COLD. PATIENT JUST REQUESTED TO GIVE HER AN ICE WATER AND ICE CHIPS. PROVIDED ORDERED.
--- NOTE | 2021-08-31 23:00 | NUR ---
SENT THE PATIENT URINE FOR URINALYSIS ORDERED.
[2021-09-01] MEDS: oxyCODONE/APAP 5/325 MG 1 TAB TAB PO PRN ×2 (00:21→17:01)
--- NOTE | 2021-09-01 01:50 | NUR ---
CHAMPAGNE MAKER WAS HERE EARLIER TO DRAW THE H/H OF THE PATIENT AFTER THE TRANSFUSION BUT PER CHAMPAGNE MAKER SHE IS HAVING A HARD TIME AND TRIED 3 TIMES ALREADY AND WILL TRY AGAIN LATER.
[2021-09-01] MEDS: ONDANSETRON 4 MG/2 ML VIAL IVP PRN (02:43)
[2021-09-01 03:54] LABS: APPEARANCE,URINE CLEAR (CLEAR); BILIRUBIN,URINE NEGATIVE (NEGATIVE); BLOOD, URINE TRACE-I (NEGATIVE); COLOR,URINE YELLOW (YELLOW); LEUKOCYTE ESTERASE ,URINE NEGATIVE (NEGATIVE); NITRITE, URINE NEGATIVE (NEGATIVE); UGLUCOSE NEGATIVE (NEGATIVE)
[2021-09-01 04:00] VITALS: BP 154/91
[2021-09-01 04:06] LABS: RBC,URINE 0-5 /HPF (0-5); WBC,URINE 0-5 /HPF (0-5)
[2021-09-01] MEDS: NACL 0.9% 1,000 ML IV SCH ×2 (04:45→18:28)
[2021-09-01] MEDS: HYDROcodone/APAP 10/325 MG 1 TAB TAB PO PRN ×2 (04:45→20:54)
--- NOTE | 2021-09-01 04:55 | NUR ---
PATIENT HASN'T BEEN RECEIVING HER IVF DUE TO PATIENT COMPLAINING OF PAIN ON HER IV SITE AND REFUSED TO BE CONNECTED ON IVF. PATIENT AWAITING FOR PICC LINE PLACEMENT.
--- NOTE | 2021-09-01 06:25 | NUR ---
PATIENT STABLE. NO SIGN AND SYMPTOMS OF DISTRESS NOTED AND NO COMPLAIN AT THIS TIME. ALL NEEDS ATTENDED. WILL ENDORSE THE PATIENT TO THE ONCOMING RN FOR CONTINUITY OF CARE. CALL LIGHT WITHIN REACH.
--- NOTE | 2021-09-01 07:27 | NUR ---
ENDORSED THE PATIENT TO THE ONCOMING RN KWASI FOR CONTINUITY OF CARE. PATIENT STABLE. SIGNING OFF.
[2021-09-01] MEDS: LORATADINE 10 MG TAB PO SCH (09:00)
[2021-09-01] MEDS: DOCUSATE SODIUM 100 MG GELCAP PO SCH (11:14)
[2021-09-01 11:46] LABS: BASOPHILS % (AUTO) 0.4 % (0.0-2.0); EOSINOPHILS # (AUTO) 0.3 K/uL (0-0.4); EOSINOPHILS % (AUTO) 4.4 % (0.0-4.0); HEMOGLOBIN 10.1 g/dL (12.0-16.0); LYMPHOCYTES # (AUTO) 1.3 K/uL (2.5-16.5); LYMPHOCYTES % (AUTO) 19.5 % (20.5-51.1); MEAN CORPUSCULAR HEMOGLOBIN 29 pg (27-31); MEAN CORPUSCULAR HGB CONC 33 g/dL (33-37); MEAN CORPUSCULAR VOLUME 89.1 fL (80-94); MONOCYTES # (AUTO) 0.4 K/uL (0.8-1.0); MONOCYTES % (AUTO) 6.1 % (1.7-9.3); NEUTROPHILS # (AUTO) 4.6 K/uL (1.8-7.7); NEUTROPHILS % (AUTO) 69.6 % (42.2-75.2); PLATELET COUNT (AUTO) 674 K/uL (140-450); RED BLOOD CELL COUNT(AUTO) 3.48 MIL/uL (4.20-5.40); RED CELL DISTRIBUTION WIDTH 17.1 % (11.6-13.7); WHITE BLOOD COUNT (AUTO) 6.6 K/uL (4.8-10.8)
[2021-09-01 12:00] VITALS: BP 116/84
--- NOTE | 2021-09-01 12:36 | NUR ---
Patient's blood pressure low, lethargic. Called Physician and got an order for a Bolus. Patient has no IV as previous one has infiltrated. Awaiting picc line nurse to come place PICC.
--- NOTE | 2021-09-01 12:38 | NUR ---
Patient remains lethargic but arousable. Called Physician Dr Kenny and given an order to do EKG.
--- NOTE | 2021-09-01 19:15 | NUR ---
RECEIVED ENDORSEMENT FROM MORNING SHIFT FOR CONTINUITY OF CARE. PATIENT STABLE AND RESTING IN BED. A&O X4. RESPIRATIONS EVEN AND UNLABORED. DENIES PAIN AT THIS TIME. ON RA WITH AN O2 SAT OF 97%. NO APPARENT S/SX OF ACUTE RESPIRATORY DISTRESS. IV SITE ON LEFT AC 20G PATENT/INTACT WITH NS INFUSING AT 100 ML/HR. POC AND WHITE BOARD COMMUNICATION UPDATED. BED IN LOW/LOCKED POSITION. ALL SAFETY MEASURES IN PLACE. CALL LIGHT WITHIN REACH. WILL CONTINUE TO MONITOR.
--- NOTE | 2021-09-01 19:30 | NUR ---
PATIENT CARE ONGOING. PATIENT STABLE AND RESTING IN BED. A&O X4. DISCUSSED WITH PATIENT MEDICAL PLAN OF CARE, FALL AND SAFETY INTERVENTIONS AND MEDICAL MANAGEMENT. PATIENT RESPIRATIONS EVEN AND UNLABORED. BREATHING ROOM AIR WITH AN O2 SAT OF 98%. NO APPARENT S/SX OF ACUTE RESPIRATORY DISTRESS. IV SITE ON LEFT AC 20G PATENT/INTACT WITH NS INFUSING AT 100 ML/HR. POC AND WHITE BOARD COMMUNICATION UPDATED. BED IN LOW/LOCKED POSITION. ALL SAFETY MEASURES IN PLACE. CALL LIGHT WITHIN REACH. WILL CONTINUE TO MONITOR. NO ACUTE DISTRESS NOTED.
[2021-09-01 20:00] VITALS: BP 127/68
--- NOTE | 2021-09-01 20:50 | NUR ---
ANSWERED CALL LIGHT. PATIENT C/O OF PAIN 04/05. WILL ADMINISTER PRN MEDICATION PER MD ORDER. NO APPARENT S/SX OF ACUTE RESPIRATORY DISTRESS. ALL SAFETY MEASURES IN PLACE. CALL LIGHT WITHIN REACH. WILL CONTINUE TO MONITOR.
--- NOTE | 2021-09-01 22:50 | NUR ---
CHECKED PATIENT. STABLE AND SLEEPING COMFORTABLY IN SUPINE POSITION. RESPIRATIONS EVEN AND UNLABORED. NO APPARENT S/SX OF ACUTE RESPIRATORY DISTRESS. WHITE COMMUNICATION BOARD UPDATED. ALL SAFETY MEASURES IN PLACE. CALL LIGHT WITHIN REACH. WILL CONTINUE TO MONITOR.
--- NOTE | 2021-09-02 01:50 | NUR ---
ANSWERED CALL LIGHT. PATIENT C/O OF PAIN 7/10 IN ABDOMINAL AREA. WILL ADMINISTER PRN MEDICATION PER MD ORDER.
[2021-09-02] MEDS: oxyCODONE/APAP 5/325 MG 1 TAB TAB PO PRN ×2 (01:53→08:56)
--- NOTE | 2021-09-02 03:40 | NUR ---
CHECKED PATIENT. STABLE AND SLEEPING COMFORTABLY IN LEFT SIDE. RESPIRATIONS EVEN AND UNLABORED. NO APPARENT S/SX OF ACUTE RESPIRATORY DISTRESS. WHITE COMMUNICATION BOARD UPDATED. ALL SAFETY MEASURES IN PLACE. CALL LIGHT WITHIN REACH. WILL CONTINUE TO MONITOR.
[2021-09-02 04:00] VITALS: BP 154/89
[2021-09-02] MEDS: HYDROcodone/APAP 10/325 MG 1 TAB TAB PO PRN ×2 (04:33→11:26)
--- NOTE | 2021-09-02 05:40 | NUR ---
CHECKED PATIENT. STABLE AND SLEEPING COMFORTABLY IN RIGHT SIDE. RESPIRATIONS EVEN AND UNLABORED. NO APPARENT S/SX OF ACUTE RESPIRATORY DISTRESS. WHITE COMMUNICATION BOARD UPDATED. ALL SAFETY MEASURES IN PLACE. CALL LIGHT WITHIN REACH. WILL CONTINUE TO MONITOR.
[2021-09-02] MEDS: NACL 0.9% 1,000 ML IV SCH ×2 (06:00→18:06)
--- NOTE | 2021-09-02 07:15 | NUR ---
ENDORSED TO AM SHIFT FOR CONTINUITY OF CARE. PATIENT IS STABLE.
--- NOTE | 2021-09-02 07:18 | NUR ---
RECEIVED REPORT FROM NIGHT NURSE PT IS AAOX4 ON ROOM AIR WITH JONES CATHETER YEMENI 16, IV INTACT ON RIGHT INDEX G22 WITH NS AT 50 MLS/HR, S/P HYSTERECTOMY ON 08/28/21 AND FOR PICC LINE INSERTION. SAFETY MEASURES IN PLACE AND CALL LIGHT WITHIN REACH. WILL CONTINUE TO MONITOR.
[2021-09-02 08:00] VITALS: BP 163/85
[2021-09-02] MEDS: DOCUSATE SODIUM 100 MG GELCAP PO SCH (08:55)
[2021-09-02] MEDS: LORATADINE 10 MG TAB PO SCH (08:55)
--- NOTE | 2021-09-02 09:00 | NUR ---
SCHEDULED MEDICATION GIVEN PT COMPLAINS OF PELVIC PAIN 10/10 PAIN MEDICATIONS GIVEN. WILL CONTINUE TO MONITOR.
[2021-09-02] MEDS: ONDANSETRON 4 MG/2 ML VIAL IVP PRN (10:09)
--- NOTE | 2021-09-02 11:26 | NUR ---
PT STILL COMPLAINS OF PAIN ON THE PELVIC AREA 04/05 CHECK VITAL SIGNS BP 166/113 NJ 94.MEDICATION GIVEN.
--- NOTE | 2021-09-02 14:21 | NUR ---
JONES CATHETER REMOVED OUTPUT OF [address] PUCRELL AND Aquilino HILL ORDER.
[2021-09-02] MEDS: HYDROmorphone 1 MG/ML AMP IVP PRN ×2 (14:27→21:30)
--- NOTE | 2021-09-02 14:27 | NUR ---
PT COMPLAINS OF PAIN 08/05 DR HILL AWARE GIVEN DILAUDID 1 MG PRN Q4H AND POSSIBLE DISCHARGE TOMORROW.
[2021-09-02 16:00] VITALS: BP 1/102
--- NOTE | 2021-09-02 17:29 | NUR ---
MADE ROUNDS AT THIS PATIENT IS SLEEPING NO DISTRESS NOTED.
--- NOTE | 2021-09-02 19:05 | NUR ---
ENDORSED TO NIGHT NURSE FOR CONTINUITY OF CARE.PT STABLE
--- NOTE | 2021-09-02 19:06 | NUR ---
RECEIVED ENDORSEMENT FROM MORNING SHIFT FOR CONTINUITY OF CARE. PATIENT STABLE AND RESTING IN BED. A&O X4. VERBALLY RESPONSIVE AND ABLE TO COMMUNICATE NEEDS. RESPIRATIONS EVEN AND UNLABORED. DENIES PAIN AT THIS TIME. ON RA WITH AN O2 SAT OF 98%. NO APPARENT S/SX OF ACUTE RESPIRATORY DISTRESS. IV SITE PATENT/INTACT. POC AND WHITE BOARD COMMUNICATION UPDATED. BED IN LOW/LOCKED POSITION. ALL SAFETY MEASURES IN PLACE. CALL LIGHT WITHIN REACH. WILL CONTINUE TO MONITOR.
--- NOTE | 2021-09-02 21:05 | NUR ---
ANSWERED CALL LIGHT. PATIENT C/O OF PAIN IN ABDOMINAL AREA 06/05. CHECKED BLOOD PRESSURE FOR PRN PAIN MEDICATION PER MD ORDER. VS WNL. WILL ENDORSE TO RN GIOVANA REGARDING PRN PAIN MEDICATION VIA IVP PER MD ORDER. NO APPARENT S/SX OF ACUTE RESPIRATORY DISTRESS. WHITE BOARD COMMUNICATION UPDATED. ALL SAFETY MEASURES IN PLACE. BED IN LOW/LOCKED POSITION. CALL LIGHT WITHIN REACH. WILL CONTINUE TO MONITOR.
[2021-09-02 21:09] VITALS: BP 127/78
--- NOTE | 2021-09-02 21:53 | NUR ---
RESTING IN BED, VERY DROWSY. REFUSED HEPARIN BUT EXPLAINED IT'S IMPORTANCE ESPECIALLY FOR PATIENTS WHO HAD SURGERY. AGREED AND WENT BACK TO SLEEP. NOTED IV LEAKING, STOPPED IV FLUIDS. DAUGHTER SITTING AT THE BEDSIDE.
--- NOTE | 2021-09-02 23:45 | NUR ---
ANSWERED CALL LIGHT. PATIENT C/O PAIN 05/05. WILL DISCUSS OPTIONS FOR PRN MEDICATION BECAUSE CURRENT IV SITE IS LEAKING.
--- NOTE | 2021-09-03 00:15 | NUR ---
ENTERED PATIENT'S ROOM TO DISCUSS STRATEGY FOR NEW IV SITE BUT PATIENT IS ASLEEP. RESPIRATIONS EVEN AND UNLABORED. NO APPARENT S/SX OF ACUTE RESPIRATORY DISTRESS. WHITE COMMUNICATION BOARD UPDATED. ALL SAFETY MEASURES IN PLACE. CALL LIGHT WITHIN REACH. WILL CONTINUE TO MONITOR.
--- NOTE | 2021-09-03 01:50 | NUR ---
ANSWERED CALL LIGHT. PATIENT C/O PAIN 10/10 IN ABDOMINAL AREA. WILL ENDORSE TO PITER DEMPSEY REGARDING ESTABLISHING IV INSERTION SINCE PATIENT IS A HARD STICK.
[2021-09-03 02:22] VITALS: BP 141/80
[2021-09-03] MEDS: HYDROmorphone 1 MG/ML AMP IVP PRN ×4 (02:43→16:06)
--- NOTE | 2021-09-03 03:50 | NUR ---
MEASURED, DOCUMENTED, AND TOOK PHOTOS OF PATIENT'S ABDOMINAL WOUND PER WOUND ASSESSMENT ROUTINE. PATIENT DENIES PAIN AT THIS TIME. NO APPARENT S/SX OF ACUTE RESPIRATORY DISTRESS. RESPIRATIONS EVEN AND UNLABORED. WHITE BOARD COMMUNICATION UPDATED. ALL SAFETY MEASURES IN PLACE. CALL LIGHT WITHIN REACH. WILL CONTINUE TO MONITOR.
--- NOTE | 2021-09-03 05:51 | NUR ---
PUT 24 GA INRIGHT INDEX FINGER GOOD BLOOD RETURN TO MEDICATE FOR NAUSEA.AND AT 640 DILAUDID 1MG IVP. GIOVANA DOUGLASS RN.
--- NOTE | 2021-09-03 05:53 | NUR ---
Patient's Plan of Care was discussed and reviewed with KALI: OTILIO BASS
[2021-09-03] MEDS: ONDANSETRON 4 MG/2 ML VIAL IVP PRN (05:55)
--- NOTE | 2021-09-03 05:55 | NUR ---
COMPLAINED OF NAUSEA AND ITCHINESS. MEDICATED WITH ZOFRAN BY PITER AKHTAR. BENADRYL 25 MG PO ADMINISTERED PER MD ORDER.
[2021-09-03] MEDS: NACL 0.9% 1,000 ML IV SCH (07:00)
--- NOTE | 2021-09-03 07:05 | NUR ---
ENDORSED PATIENT TO MORNING SHIFT FOR CONTINUITY OF CARE. PATIENT IS STABLE.
--- NOTE | 2021-09-03 07:15 | NUR ---
ENDORSED PATIENT TO MORNING SHIFT FOR CONTINUITY OF CARE. PATIENT IS STABLE.
[2021-09-03 08:00] VITALS: BP 162/98
[2021-09-03] MEDS: DOCUSATE SODIUM 100 MG GELCAP PO SCH (08:45)
[2021-09-03] MEDS: LORATADINE 10 MG TAB PO SCH (08:45)
[2021-09-03] MEDS: oxyCODONE/APAP 5/325 MG 1 TAB TAB PO PRN (08:46)
--- NOTE | 2021-09-03 12:22 | NUR ---
DC PLANNING ANGEL LUIS CALLED PATIENT'S PCP OFFICE AT TO SET UP A FOLLOW UP CARE APPOINTMENT FOR PATIENT WITHIN 7 DAYS OF DISCHARGE FROM [facility]. ANGEL LUIS SPOKE TO ZOEY WHO PROVIDED PATIENT'S APPOINTMENT FOR 09/10/2021 AT 11:30 AM AT [address] [facility] Huang THANKED ZOEY FOR THE INFORMATION AND ENDED THE CALL. ANGEL LUIS MET WITH PATIENT AT BEDSIDE AND PROVIDED HER WITH HER APPOINTMENT INFORMATION SCHEDULED FOR . ANGEL LUIS HANDED APPOINTMENT NOTE TO PATIENT WITH APPOINTMENT Addendum: 09/03/21 at 1236 by Shaniqua Germain DC PLANNING PREVIOUS DATA ERROR ANGEL LUIS MET WITH PATIENT AT BEDSIDE AND PROVIDED HER WITH HER APPOINTMENT INFORMATION SCHEDULED FOR 09/10/2021. ANGEL LUIS HANDED APPOINTMENT NOTE TO PATIENT WITH APPOINTMENT.
--- NOTE | 2021-09-03 13:20 | NUR ---
SEEN BY DR. PURCELL AT BEDSIDE AND EXPLAINED TO HER THE PLAN AND FOLLOW UP TO HIS OFFICE THIS FRIDAY. PATIENT VERBALIZED UNDERSTANDING.
--- NOTE | 2021-09-03 16:34 | NUR ---
09/03/21 RD INITIAL ASSESSMENT COMPLETED PLEASE REFER TO NUTRITION ASSESSMENT UNDER CARE ACTIVITY FOR ESTIMATED NUTRITIONAL NEEDS. 1. CONTINUE REGULAR DIET TOLERATED 2. RECOMMEND ENSURE BID TO INCREASE CALORIE INTAKE 3. RD TO FOLLOW-UP 5-7 DAYS, LOW RISK SNEHA GUTIERREZ RD
[2021-09-03 17:28] VITALS: BP 139/95
--- NOTE | 2021-09-03 18:30 | NUR ---
PT WAS DISCHARGED TO HOME WITH FAMILY. PT WAS STABLE. WAS GIVEN DC INSTRUCTIONS. IV WAS PULLED OUT AND WAS PATENT AND INTACT. UNDERSTOOD TP MAKE PCP VISIT WITH 7 DAYS. WHEELED PT OUT TO FRONT AND HELPED INTO PRIVATE VEHICLE, FAMILY WAS GRATEFUL FOR CARE.
== END 2021-09-03 18:20 | disposition home or self-care (01) | DRG 513 ==
LOC: MED 21:43 → MTU 08-28 01:07
PROVIDERS: ADMIT Hospitalist; ATTEND Hospitalist
PROC: 0UB20ZZ Excision of Bilateral Ovaries, Open Approach (ICD-10-PCS; 2021-08-28)
PROC: 0UT90ZZ Resection of Uterus, Open Approach (ICD-10-PCS; 2021-08-28)
PROC: 0UB70ZZ Excision of Bilateral Fallopian Tubes, Open Approach (ICD-10-PCS; 2021-08-28)
PROC: 30233N1 Transfusion of Nonautologous Red Blood Cells into Peripheral Vein, Percutaneous Approach (ICD-10-PCS; principal; 2021-08-31)
DX: N80.9 Endometriosis, unspecified (principal); D57.1 Sickle-cell disease without crisis; G89.29 Other chronic pain; F32.A Depression, unspecified; F41.9 Anxiety disorder, unspecified; R53.83 Other fatigue; Z20.822 Contact with and (suspected) exposure to COVID-19; Z88.6 Allergy status to analgesic agent; Z88.8 Allergy status to other drugs, medicaments and biological substances; Z79.899 Other long term (current) drug therapy; Z98.891 History of uterine scar from previous surgery
CPT/HCPCS: 36415; 36556; 80048; 80053; 81001; 85025; 85610; 85730; 86886; 86900; 86901; 86920; 87081; 87086; 96361; 96374; 96376; 99285; J0330; J0690; J1170; J1200; J1644; J1885; J2001; J2060; J2270; J2370; J2405; J2704; J2710; J2765; J3010; J3490; J7120; P9016; Q0163

== ENCOUNTER 2022-04-11 20:05 | Inpatient (IN) | payer OTHER ==
[~2022-04-11] VITALS: Ht 170.2 cm; Wt 99.8 kg
--- NOTE | 2022-04-11 18:30 | NUR ---
RECEIVED REPORT FROM DAVID (CHARGE NURSE) AND GABRIELA DUMAS FROM [facility]. PATIENT ARRIVED WITH 2 AMS PERSONNEL. PATIENT IS AWAKE, ALERT, AND COOPERATIVE. RESPIRATION EVEN UNLABORED ON ROOM AIR. DENIES PAIN AT THIS TIME. SKIN IS WARM AND DRY. IV NOTED ON THE LEFT WRIST 24G PATENT AND INTACT. LUNGS SOUNDS CLEAR UPON AUSCULTATION. HEART RATE REGULAR, S1 & S2 NOTED. BOWEL SOUNDS PRESENTS IN ALL QUADRANT. ABDOMEN SOFT AND ROUND. LAST BM TODAY 04/11/22. LEFT LEG NOTED WITH ANKLE BOOT, PER PATIENT SHE TWISTED HER ANKLE AND HAD SURGERY IN FEBRUARY. MRSA SCREEN DONE. VITALS WERE TAKEN. ORIENT PATIENT TO ROOM, STAFF, AND CALL LIGHT. ALL SAFETY MEASURES IN PLACE. BED IS AT LOW POSITION. CALL LIGHT WITHIN REACH. WILL CONTINUE TO MONITOR. Addendum: 04/12/22 at 0114 by Louie Serrato RN 2014
[~2022-04-11 20:05] MED LIST: ACET-5636 PO; DIPH25SG5 PO; HYDR500C PO; LYR75 PO; TIZA4CAP PO; TOP100 PO; ZOLP10TA1 PO
[2022-04-11 20:15] VITALS: BP 159/98
--- NOTE | 2022-04-11 20:45 | NUR ---
PATIENT LEFT ANKLE WRAPPED WITH BANDAGES, ASKED PT IF ITS OKAY FOR ME TO REMOVED THE BANDAGES AND ASSESS THE SKIN, PER PATIENT "NOT AT THIS MOMENT, I WANT MY PAIN MEDS FIRST." WILL PAGED MD FOR ORDERS. WILL CONTINUE TO MONITOR
--- NOTE | 2022-04-11 21:00 | NUR ---
REINALDO PATEL, AWAITING FOR CALL BACK.
--- NOTE | 2022-04-11 21:17 | NUR ---
PATIENT COMPLAINED OF 10/10 GENERALIZED PAIN. PRN PAIN MEDS GIVEN PER ORDER. WILL CONTINUE TO MONITOR Addendum: 04/12/22 at 0033 by Louie Serrato RN INCORRECT TIME. CORRECTED TIME 6613
[2022-04-11] MEDS ORDERED: MAGNESIUM OXIDE 400 MG TAB PO PRN (21:30)
[2022-04-11] MEDS ORDERED: ONDANSETRON 4 MG/2 ML VIAL IVP PRN (21:30)
[2022-04-11] MEDS ORDERED: KCL 20 MEQ/WATER INJ PREMIX 200 ML IV PRN (21:30)
[2022-04-11] MEDS ORDERED: ACETAMINOPHEN 325 MG TAB PO PRN (21:30)
--- NOTE | 2022-04-11 22:00 | NUR ---
PER MD ADMINISTER ROCEPHIN AND START IV FLUIDS. ALL SCHEDULED MEDICATIONS GIVEN PER ORDER. WILL CONTINUE TO MONITOR.
[2022-04-11] MEDS ORDERED: cefTRIAXone 1,000 MG VIAL ONE (22:14)
[2022-04-11] MEDS: HYDROmorphone 1 MG/ML AMP IVP PRN (22:17)
[2022-04-11] MEDS: NACL 0.9% 1,000 ML IV SCH (22:21)
[2022-04-12] VITALS: BP 128/84
--- NOTE | 2022-04-12 02:00 | NUR ---
MADE ROUNDS, PATIENT SLEEPING RESPIRATION EVEN UNLABORED ON ROOM AIR. NO DISTRESS NOTED.
[2022-04-12 04:00] VITALS: BP 161/99
[2022-04-12] MEDS: HYDROmorphone 1 MG/ML AMP IVP PRN ×5 (04:06→20:05)
--- NOTE | 2022-04-12 04:06 | NUR ---
PATIENT COMPLAINED OF GENERALIZED PAIN 8/10 PRN PAIN MEDS GIVEN PER ORDER. WILL CONTINUE TO MONITOR.
[2022-04-12 07:20] LABS: ANION GAP 12.1 (8-16); CARBON DIOXIDE 21.7 mmol/L (21-32); CREATININE 0.7 mg/dL (0.6-1.3)
[2022-04-12 07:25] LABS: POTASSIUM 2.8 mmol/L (3.5-5.1)
--- NOTE | 2022-04-12 07:25 | NUR ---
ENDORSED PATIENT AT BEDSIDE TO DAY SHIFT NURSE FOR CONTINUITY OF CARE
[2022-04-12 07:32] LABS: BASOPHILS % (AUTO) 0.5 % (0.0-2.0); EOSINOPHILS # (AUTO) 0.2 K/uL (0-0.4); EOSINOPHILS % (AUTO) 2.9 % (0.0-4.0); HEMATOCRIT 29.6 % (36-48); HEMOGLOBIN 9.7 g/dL (12.0-16.0); LYMPHOCYTES # (AUTO) 2.3 K/uL (2.5-16.5); MEAN CORPUSCULAR HEMOGLOBIN 28 pg (27-31); MEAN CORPUSCULAR HGB CONC 33 g/dL (33-37); MEAN CORPUSCULAR VOLUME 85.9 fL (80-94); MONOCYTES # (AUTO) 0.3 K/uL (0.8-1.0); MONOCYTES % (AUTO) 5.8 % (1.7-9.3); NEUTROPHILS # (AUTO) 2.9 K/uL (1.8-7.7); NEUTROPHILS % (AUTO) 50.8 % (42.2-75.2); PLATELET COUNT (AUTO) 371 K/uL (140-450); RED BLOOD CELL COUNT(AUTO) 3.45 MIL/uL (4.20-5.40); RED CELL DISTRIBUTION WIDTH 16.8 % (11.6-13.7); WHITE BLOOD COUNT (AUTO) 5.7 K/uL (4.8-10.8)
--- NOTE | 2022-04-12 07:42 | NUR ---
PT STATES SHE IS A HEIGHT OF 5'7" FOR PHARMACY DOSING PURPOSES.
--- NOTE | 2022-04-12 07:45 | NUR ---
RECEIVED BEDSIDE REPORT FROM PRINTED CIRCUIT BOARDS LAMINATOR NURSE FOR CONTINUITY OF CARE. PT IS AWAKE AND ALERT. A&OX4. ON RA WITH BREATHING UNLABORED. DENIES PAIN AT THIS TIME. WHEELCHAIR AT BEDSIDE FOR LEFT ANKLE SURGERY. IV IS INTACT AND FLUSHING. PT IS STABLE. PLAN OF CARE DISCUSSED.
[2022-04-12 08:00] VITALS: BP 155/89
--- NOTE | 2022-04-12 08:16 | NUR ---
INFORMED DR. HOLLEY ABOUT CRITICAL LAB POTASSIUM 2.8 AND MAGNESIUM 1.5. HE ORDERED KRIDER 40 MEQ IV AND MAG RIDER 2 GRAM IVPB. WILL ADMINISTER ONCE ORDERED.
--- NOTE | 2022-04-12 08:43 | NUR ---
PT STATES SHE HAS PAIN IN HER ABD AT A SCALE OF 10/10. PT STATES THE PAIN ACHING. PT WAS GIVEN DILAUDID FOR PAIN PRN. BP WAS STABLE PRIOR TO ADMINISTRATION OF MEDICATION.
--- NOTE | 2022-04-12 08:43 | NUR ---
K RIDER 40 MEQ GIVEN ORDERED FOR 2.8. EDUCATION WAS PROVIDED AND PT VERBALIZED UNDERSTANDING. PT STABLE AT THIS TIME. WILL MONITOR.
[2022-04-12] MEDS: KCL 20 MEQ/WATER INJ PREMIX 100 ML IV SCH ×2 (08:44→11:39)
[2022-04-12] MEDS: ENOXAPARIN 40 MG/0.4 ML SYR SUBQ SCH (08:47)
[2022-04-12] MEDS: NACL 0.9% 1,000 ML IV SCH ×2 (09:31→22:30)
--- NOTE | 2022-04-12 11:37 | NUR ---
IV INFILTRATED ON THE LEFT WRIST. NEW IV PLACED BY STAFF SERVICES MANAGER JOWIE IN THE LEFT AC 24 GAUGE. SECOND BAG OF K RIDER 20 MEQ DELAYED DUE TO INFILTRATED IV. FIRST BAG STILL INFUSING.
[2022-04-12 12:00] VITALS: BP 161/99
--- NOTE | 2022-04-12 12:30 | NUR ---
PT STATES SHE HAS PAIN AT A SCALE OF 10/10 IN THE ABD. PT WAS GIVEN DILAUDID FOR PAIN PRN. WILL MONITOR. BP STABLE PRIOR TO ADMINISTRATION OF MEDICATION.
[2022-04-12] MEDS ORDERED: MAG SULF 2000 MG/WATER PREMIX 50 ML IV SCH (13:00)
--- NOTE | 2022-04-12 13:13 | NUR ---
INFORMED DR. HOLLEY OF ELEVATED BP 161/99. NO NEW ORDERS AT THIS TIME. TO SEE PATIENT.
--- NOTE | 2022-04-12 15:05 | NUR ---
PT AT BEDSIDE ASSESSING PT. PT IS STABLE AT THIS TIME.
[2022-04-12 16:00] VITALS: BP 147/97
--- NOTE | 2022-04-12 16:30 | NUR ---
PT WAS GIVEN DILUADID FOR PAIN AT A SCALE OF 8/10 IN THE ABD AND LEFT FOOT. BP WAS STABLE PRIOR TO ADMINISTRATION OF MEDICATION. PT WAS ALSO GIVEN MAGNESIUM SULFATE 2 GRAMS IVPB ORDERED FOR MAGNESIUM LEVEL OF 1.5. EDUCATION PROVIDED AND PT VERBALIZED UNDERSTANDING.
--- NOTE | 2022-04-12 19:09 | NUR ---
ENDORSED PT TO EMBLEM DRAWER IN NURSE FOR CONTINUITY OF CARE. PT IS STABLE. PLAN OF CARE DISCUSSED.
[2022-04-12 20:00] VITALS: BP 160/94
--- NOTE | 2022-04-12 20:05 | NUR ---
PT COMPLAINTS OF LEFT LOWER LEG PAIN 10/10, DILAUDID PAIN MEDICATION ADMINISTERED ORDERED
[2022-04-12] MEDS: ZOLPIDEM 10 MG TAB PO SCH (20:54)
[2022-04-12] MEDS: PREGABALIN 25 MG CAP PO SCH (20:55)
[2022-04-12] MEDS: tiZANidine 4 MG TAB PO SCH (20:56)
--- NOTE | 2022-04-12 21:05 | NUR ---
PT VERBALIZES PAIN ON LEFT LOWER LEG IS GOING DOWN, PAIN LEVEL NOW IS 8/10
[2022-04-13] MEDS: HYDROmorphone 1 MG/ML AMP IVP PRN ×5 (04:36→20:48)
[2022-04-13] MEDS: tiZANidine 4 MG TAB PO SCH ×3 (04:59→20:50)
[2022-04-13] MEDS: NACL 0.9% 1,000 ML IV SCH ×2 (05:01→06:19)
--- NOTE | 2022-04-13 06:42 | NUR ---
PATIENT HAS BEEN SCREENED AND CATEGORIZED MODERATE NUTRITION RISK. PATIENT WILL BE SEEN WITHIN 3-5 DAYS OF ADMISSION. 04/14/22-04/16/22 DEVENDRA JACOBS MS, RDN
--- NOTE | 2022-04-13 07:20 | NUR ---
RECEIVED BEDSIDE REPORT FROM SERVICE SUPPORT REPRESENTATIVE NURSE FOR CONTINUITY OF CARE. PT IS AWAKE AND ALERT. A&OX4. ON RA WITH BREATHING UNLABORED. PT IS CONTINENT OF THE BOWEL AND BLADDER. AMBULATORY INDEPENDENTLY. SKIN IS WARM, DRY, AND INTACT. HEALED SURGICAL WOUND ON LEFT ANKLE. WHEELCHAIR AT BEDSIDE. ANKLE BOOT AT BEDSIDE. PT IS STABLE. PLAN OF CARE DISCUSSED.
[2022-04-13 07:31] LABS: BASOPHILS % (AUTO) 0.5 % (0.0-2.0); EOSINOPHILS # (AUTO) 0.2 K/uL (0-0.4); EOSINOPHILS % (AUTO) 3.6 % (0.0-4.0); HEMOGLOBIN 9.6 g/dL (12.0-16.0); LYMPHOCYTES # (AUTO) 1.7 K/uL (2.5-16.5); LYMPHOCYTES % (AUTO) 33.8 % (20.5-51.1); MEAN CORPUSCULAR HEMOGLOBIN 29 pg (27-31); MEAN CORPUSCULAR HGB CONC 33 g/dL (33-37); MEAN CORPUSCULAR VOLUME 86.6 fL (80-94); MONOCYTES # (AUTO) 0.3 K/uL (0.8-1.0); MONOCYTES % (AUTO) 5.1 % (1.7-9.3); NEUTROPHILS # (AUTO) 2.9 K/uL (1.8-7.7); PLATELET COUNT (AUTO) 332 K/uL (140-450); RED BLOOD CELL COUNT(AUTO) 3.34 MIL/uL (4.20-5.40); RED CELL DISTRIBUTION WIDTH 16.5 % (11.6-13.7)
[2022-04-13 07:51] LABS: ANION GAP 12.4 (8-16); CARBON DIOXIDE 21.9 mmol/L (21-32); CREATININE 0.8 mg/dL (0.6-1.3); POTASSIUM 3.3 mmol/L (3.5-5.1)
[2022-04-13 08:00] VITALS: BP 143/94
--- NOTE | 2022-04-13 08:28 | NUR ---
PT STATES PAIN AT A SCALE OF 9/10 IN THE ABD AND LEFT FOOT. PT SAYS THE PAIN IS ACHING IN CHARACTERISTIC. PT WAS GIVEN DILAUDID FOR PAIN. BP WAS STABLE PRIOR TO ADMINISTRATION OF MEDICATION. WILL MONITOR.
[2022-04-13] MEDS: TOPIRAMATE 100 MG TAB PO SCH (08:31)
[2022-04-13] MEDS: PREGABALIN 25 MG CAP PO SCH ×2 (08:31→20:49)
[2022-04-13] MEDS: HYDROXYUREA 500 MG CAP PO SCH (08:32)
[2022-04-13] MEDS: ENOXAPARIN 40 MG/0.4 ML SYR SUBQ SCH (08:33)
--- NOTE | 2022-04-13 11:17 | NUR ---
ROUNDED ON PT. SHE IS RESTING COMFORTABLY IN SEMI FOWLERS POSITION. ON CELL PHONE WATCHING VIDEOS. IV IS STILL INTACT AND INFUSING FLUIDS ORDERED. NO PAIN NOTED. PT STABLE.
--- NOTE | 2022-04-13 12:10 | NUR ---
PT C/O PAIN ON CHEST AND HER BACK /10, ACHING, DILAUDID PRN PAIN MEDICATION GIVE BY IV PUSH AT THIS TIME.
--- NOTE | 2022-04-13 14:30 | NUR ---
PT IS STABLE. NO DISTRESS NOTED. LAYING IN SEMI FOWLERS POSITION. FLUIDS ARE RUNNING THROUGH IV, NO INFILTRATION NOTED.
[2022-04-13 16:00] VITALS: BP 139/97
--- NOTE | 2022-04-13 16:01 | NUR ---
PT C/O PAIN 8/10 ON HER LEFT FEET AND ON HER CHEST, PAIN MEDICATION DILAUDID ADMINISTERED BY IV PUSH PER MD ORDERED. WILL CONTINUE TO MONITOR.
--- NOTE | 2022-04-13 18:00 | NUR ---
PT WAS ASSISTED BY ABRASIVE WORKER TO CHANGE GOWN AND LINENS. PT IS STABLE AT THIS TIME. USING PUREWICK TO COLLECT URINE. PT STATED IT IS DIFFICULT TO WALK ON LEFT ANKLE. NO DISTRESS NOTED AT THIS TIME. PT STABLE.
--- NOTE | 2022-04-13 19:10 | NUR ---
ENDORSED PT TO GRADUATE CIVIL ENGINEER NURSE FOR CONTINUITY OF CARE. PT IS STABLE. PLAN OF CARE DISCUSSED.
[2022-04-13] MEDS: ZOLPIDEM 10 MG TAB PO SCH (20:49)
[2022-04-14] MEDS: HYDROmorphone 1 MG/ML AMP IVP PRN ×6 (03:42→21:37)
--- NOTE | 2022-04-14 03:42 | NUR ---
PT COMPLAINTS OF LEFT LEG PAIN OF 9/10, PAIN MEDICATION ADMINISTERED ORDERED.
[2022-04-14 04:00] VITALS: BP 140/90
[2022-04-14] MEDS ORDERED: MAGNESIUM HYDROXIDE 2400 MG/30 ML UDC PO PRN (04:45)
[2022-04-14] MEDS: tiZANidine 4 MG TAB PO SCH ×3 (06:18→21:42)
--- NOTE | 2022-04-14 07:07 | NUR ---
PT COMPLAINTS OF SEVERE PAINT OF LEFT LEG 8/10, PAIN MEDICATION ADMINISTERED ORDERED.
[2022-04-14 07:16] LABS: BASOPHILS # (AUTO) 0.1 K/uL (0.00-0.22); EOSINOPHILS # (AUTO) 0.1 K/uL (0-0.4); EOSINOPHILS % (AUTO) 2.3 % (0.0-4.0); HEMATOCRIT 31.6 % (36-48); HEMOGLOBIN 10.4 g/dL (12.0-16.0); LYMPHOCYTES % (AUTO) 38.8 % (20.5-51.1); MEAN CORPUSCULAR HEMOGLOBIN 29 pg (27-31); MEAN CORPUSCULAR HGB CONC 33 g/dL (33-37); MEAN CORPUSCULAR VOLUME 86.8 fL (80-94); MONOCYTES # (AUTO) 0.2 K/uL (0.8-1.0); MONOCYTES % (AUTO) 3.5 % (1.7-9.3); NEUTROPHILS # (AUTO) 2.8 K/uL (1.8-7.7); NEUTROPHILS % (AUTO) 54.4 % (42.2-75.2); PLATELET COUNT (AUTO) 390 K/uL (140-450); RED BLOOD CELL COUNT(AUTO) 3.63 MIL/uL (4.20-5.40); RED CELL DISTRIBUTION WIDTH 16.4 % (11.6-13.7); WHITE BLOOD COUNT (AUTO) 5.2 K/uL (4.8-10.8)
[2022-04-14 07:24] LABS: ANION GAP 11.3 (8-16); CARBON DIOXIDE 21.5 mmol/L (21-32); CREATININE 0.8 mg/dL (0.6-1.3); POTASSIUM 3.8 mmol/L (3.5-5.1)
--- NOTE | 2022-04-14 07:32 | NUR ---
RECEIVED PATIENT FROM ORACLE ARCHITECT NURSE FOR CONTINUITY OF CARE. PT IS AOX4, ABLE TO MAKE NEEDS KNOWN. RESPIRATIONS EVEN AND UNLABORED. ON ROOM AIR AND NO DISTRESS NOTED. SKIN IS WARM, DRY, AND INTACT. IV SITE ON AC 24G INFUSING FLUIDS WELL. PT DENIES PAIN AT THE MOMENT. PLAN OF CARE DISCUSSED. SAFETY PRECAUTIONS IN PLACE. CALL LIGHT WITHIN REACH. WILL CONTINUE TO MONITOR.
[2022-04-14 08:00] VITALS: BP 144/81
[2022-04-14] MEDS: SENNA 8.6 MG TAB PO SCH (09:00)
[2022-04-14] MEDS: PREGABALIN 25 MG CAP PO SCH ×2 (09:04→21:36)
[2022-04-14] MEDS: HYDROXYUREA 500 MG CAP PO SCH (09:04)
[2022-04-14] MEDS: TOPIRAMATE 100 MG TAB PO SCH (09:04)
[2022-04-14] MEDS: ENOXAPARIN 40 MG/0.4 ML SYR SUBQ SCH (09:08)
--- NOTE | 2022-04-14 09:30 | NUR ---
ALL SCHEDULED MEDS GIVEN. PT IS STABLE. NO DISTRESS NOTED. WILL CONTINUE TO MONITOR.
[2022-04-14] MEDS: NACL 0.9% 1,000 ML IV SCH ×2 (12:00→22:06)
--- NOTE | 2022-04-14 12:45 | NUR ---
IV INFILTRATED. WILL REINSERT NEW IV.
--- NOTE | 2022-04-14 12:50 | NUR ---
COULD NOT REINSERT NEW IV. WILL REQUEST MIDLINE PLACEMENT FROM DR. HOLLEY
--- NOTE | 2022-04-14 13:00 | NUR ---
SPOKE TO DR. HOLLEY REQUESTING A MIDLINE PLACEMENT. RECEIVED A TELEPHONE CONSENT FOR MIDLINE PLACEMENT. USED SECOND WITNESS WITH PITER WHITE AND CONFIRMED THE CONSENT.
[2022-04-14] MEDS: oxyCODONE/APAP 5/325 MG 1 TAB TAB PO PRN (13:20)
--- NOTE | 2022-04-14 14:22 | NUR ---
PICC LINE NURSE AT BEDSIDE.
--- NOTE | 2022-04-14 14:35 | NUR ---
MIDLINE PLACED ON TAVON AND IS CLEARED TO USE
[2022-04-14 16:00] VITALS: BP 125/98
--- NOTE | 2022-04-14 18:23 | NUR ---
COMPLAINED OF GENERALIZED PAIN 10/. ADMINISTERED PRN PAIN MEDS PER MD ORDERED.
--- NOTE | 2022-04-14 19:42 | NUR ---
ENDORSED TO WEB UI DESIGNER NURSE FOR CONTINUITY OF CARE. PT IS STABLE.
--- NOTE | 2022-04-14 19:43 | NUR ---
RECD. RESTING IN BED, AWAKE, A/OX4. RESPIRATION EVEN AND UNLABORED. IV OF NS INFUSING AT 80 ML/HR, RIGHT UPPER ARM MIDLINE. WITH PUREWICK CONNECTED TO CONTINUOUS SUCTION DRAINING CLEAR YELLOW URINE. ON IV ANTIBIOTIC AND PAIN MEDICATIONS. DENIES PAIN 0/10.
[2022-04-14 20:49] VITALS: BP 153/94
[2022-04-14] MEDS: ZOLPIDEM 10 MG TAB PO SCH (21:35)
--- NOTE | 2022-04-14 21:36 | NUR ---
SCHEDULED MEDICATIONS ADMINISTERED. TOLERATED WELL.
[2022-04-14] MEDS ORDERED: cefTRIAXone 1,000 MG VIAL ONE (21:47)
[2022-04-15] MEDS: NACL 0.9% 1,000 ML IV SCH ×2 (00:30→12:51)
--- NOTE | 2022-04-15 00:34 | NUR ---
SLEEPING COMFORTABLY IN BED. RESPIRATION EVEN AND UNFLAVORED. .
[2022-04-15] MEDS: HYDROmorphone 1 MG/ML AMP IVP PRN ×2 (00:42→04:12)
--- NOTE | 2022-04-15 00:49 | NUR ---
Patient's Plan of Care was discussed and reviewed with DUPLICATOR PUNCH OPERATOR: OTILIO/MATTHIAS DUMAS
--- NOTE | 2022-04-15 02:30 | NUR ---
AWAKE IN BED, NO RESPIRATORY DISTRESS NOTED.
[2022-04-15 04:00] VITALS: BP 140/69
--- NOTE | 2022-04-15 04:30 | NUR ---
VS STABLE. COMPLAINT OF BODY PAINS ATTENDED PROMPTLY MEDICATED BY PITER AKHTAR PER MD ORDER.
[2022-04-15 05:17] LABS: BASOPHILS % (AUTO) 0.9 % (0.0-2.0); EOSINOPHILS # (AUTO) 0.1 K/uL (0-0.4); EOSINOPHILS % (AUTO) 2.8 % (0.0-4.0); HEMATOCRIT 29.1 % (36-48); HEMOGLOBIN 9.7 g/dL (12.0-16.0); LYMPHOCYTES # (AUTO) 2.4 K/uL (2.5-16.5); LYMPHOCYTES % (AUTO) 45.3 % (20.5-51.1); MEAN CORPUSCULAR HEMOGLOBIN 29 pg (27-31); MEAN CORPUSCULAR HGB CONC 33 g/dL (33-37); MEAN CORPUSCULAR VOLUME 85.9 fL (80-94); MONOCYTES # (AUTO) 0.2 K/uL (0.8-1.0); MONOCYTES % (AUTO) 4.5 % (1.7-9.3); NEUTROPHILS # (AUTO) 2.5 K/uL (1.8-7.7); NEUTROPHILS % (AUTO) 46.5 % (42.2-75.2); PLATELET COUNT (AUTO) 393 K/uL (140-450); RED BLOOD CELL COUNT(AUTO) 3.39 MIL/uL (4.20-5.40); RED CELL DISTRIBUTION WIDTH 16.5 % (11.6-13.7); WHITE BLOOD COUNT (AUTO) 5.4 K/uL (4.8-10.8)
[2022-04-15 05:34] LABS: ANION GAP 10.1 (8-16); CARBON DIOXIDE 24.7 mmol/L (21-32); CREATININE 0.7 mg/dL (0.6-1.3); POTASSIUM 3.8 mmol/L (3.5-5.1)
[2022-04-15] MEDS: tiZANidine 4 MG TAB PO SCH ×3 (05:48→21:04)
--- NOTE | 2022-04-15 07:25 | NUR ---
CONDITION REMAIN STABLE. ENDORSED TO AM SHIFT NURSE FOR CONTINUITY OF CARE.
--- NOTE | 2022-04-15 07:27 | NUR ---
RECEIVED REPORT FROM PILLOWCASE CLEANER NURSE FOR CONTINUITY OF CARE. PT IN BED AT THIS TIME WATCHING TELEVISION. RESPIRATIONS ARE EVEN AND UNLABORED ON ROOM AIR. NO SIGNS OF DISTRESS NOTED. PT IS ALERT AND ORIENTED X4, ABLE TO FOLLOW COMMANDS, ABLE TO VERBALIZE NEEDS. PT IS ON CCHO DIET, LAST BOWEL MOVEMENT WAS LAST NIGHT, PER PILLOWCASE CLEANER NURSE. PT HAS TAVON MIDLINE IN PLACE. SKIN IS WARM, DRY, AND INTACT. CALL LIGHT WITHIN REACH. ALL SAFETY MEASURES IN PLACE. WILL CONTINUE TO MONITOR.
[2022-04-15 08:00] VITALS: BP 145/92
[2022-04-15] MEDS: ENOXAPARIN 40 MG/0.4 ML SYR SUBQ SCH (08:40)
[2022-04-15] MEDS: TOPIRAMATE 100 MG TAB PO SCH (08:45)
[2022-04-15] MEDS: SENNA 8.6 MG TAB PO SCH (08:46)
[2022-04-15] MEDS: PREGABALIN 25 MG CAP PO SCH ×2 (08:46→21:04)
[2022-04-15] MEDS: HYDROXYUREA 500 MG CAP PO SCH (08:47)
[2022-04-15] MEDS ORDERED: HYDROmorphone 2 MG TAB PO SCH (08:51)
--- NOTE | 2022-04-15 08:51 | NUR ---
ADMINISTERED SCHEDULED MEDICATIONS. EDUCATED PT ON MEDS ADMINISTERED. WILL CONTINUE TO MONITOR.
--- NOTE | 2022-04-15 09:00 | NUR ---
PT COMPLAINING OF PAIN. STATES PAIN IS 9/10. MEDICATED PER MD ORDER. WILL CONTINUE TO MONITOR.
--- NOTE | 2022-04-15 10:00 | NUR ---
WENT TO RE-ASSESS PT PAIN. PT RESTING AT THIS TIME. NO S/S OF PAIN OR DISCOMFORT NOTED. WILL CONTINUE TO MONITOR.
--- NOTE | 2022-04-15 10:45 | NUR ---
PT WOKE UP, ASKING FOR MORE PAIN MEDICATION. EDUCATED PT ON ADMINISTRATION SCHEDULING. PT UPSET. OFFERED TO ASSIST PT WITH ALTERNATIVE PAIN MANAGEMENT. PT UPSET, REFUSING, AND STATING "I JUST WANT MY PAIN MEDS". WILL CONTINUE TO MONITOR.
[2022-04-15] MEDS: HYDROmorphone 2 MG TAB PO PRN ×2 (13:31→18:19)
--- NOTE | 2022-04-15 13:31 | NUR ---
PT COMPLAINING OF PAIN. STATES PAIN IS 10/10. ADMINISTERED PO DILAUDID. PT UPSET, ASKING WHY DILAUDID IS NOT IV ANYMORE. EDUCATED PT ON MED CHANGE FROM MD. PT UPSET STATING "THE ORAL ONE DOESNT WORK ON ME. I NEED IT IV. LET THE DR KNOW". WILL FOLLOW UP WITH MD. PT TOOK PO DILAUDID.
--- NOTE | 2022-04-15 14:31 | NUR ---
WENT TO CHECK ON PT. PT RESTING AT THIS TIME. RESPIRATIONS ARE EVEN AND UNLABORED. NO SIGNS OF DISTRESS NOTED. WILL CONTINUE TO MONITOR.
--- NOTE | 2022-04-15 15:00 | NUR ---
DISCHARGE PLANNING LATE ENTRY MEETING WITH PATIENT WAS ON 04/15/2022 at about 15:00 PATIENT IS A 46-YEAR-OLD FEMALE ADMITTED AT THE [facility]/ED ON 04/11/2022 DUE TO COMPLAINTS OF GENERALIZED BODY ACHES AND SUBJECTIVE CONCERNS FOR SICKLE CELL CRISIS. PATIENT HAS HISTORY OF SICKLE CELL DISEASE, CHRONIC PAIN SYNDROME, NEUROPATHY BACK PAIN AND A RECENT LEFT ANKLE SURGERY. PATIENT ALSO STRUGGLES WITH OPIOIDS ADDICTION. SW MET WITH PATIENT AT BEDSIDE TO DISCUSS AND GATHER PATIENT'S COLLATERAL INFORMATION. PATIENT WAS AWAKE AND ALERT GIVING APPROPRIATE RESPONSES TO THE QUESTIONS ASKED ON THE ASSESSMENT. PATIENT WAS ABLE TO PROVIDE HER OWN INFORMATION AND REPORTED LIVING AT HOME WITH HER TWO DAUGHTERS JEREMY AND GIAN RAZO, AND HER FATHER. PATIENT STATED THAT SHE HAS ADDITIONAL FAMILY SUPPORT BUT HER DAUGTHER JEREMY RAZO IS HER EMERGENCY CONTACT AND HER MEDICAL DESICION MAKER. PER PATIENT SHE IS ALSO HER [facility] CAREGIVER. PATIENT STATED NOT HAVING ADVANCE DIRECTIVES AND WAS NOT INTERESTED ON GETTING INF. FORMS PROVIDED BY ANGEL LUIS. PATIENT REPORTED UNABLE TO BE ACTIVE AND INDEPENDENT AT HOME DUE TO A RECENT SURGERY AND HER MEDICAL CONDITIONS BEFORE HOSPITALIZATION. PATIENT ALSO REPORTED HAVING ONLY A WHEELCHAIR HER DME AT HOME. PER PATIENT SHE HAS HD ISSUES GETTING HER MEDICATIONS FOR PAIN, HOWEVER SHE HAS ALREADY SPOKE TO [facility] ABOUT IT AND SHE WILL BE GETTING A SOLUTION TO HER PRESCRIPTIONS TO BE SEND TO HER [facility] IN [facility]. ANGEL LUIS EXPLAINED TO PATIENT THE NEED TO FOLLOW UP WITH AN APPOINTMENT WITHIN 5-7 DAYS WITH HER PCP ADRIA FARIAS AFTER SHE IS DISCHARGED EVEN THOUGHT PATIENT REPORTED HAT SHE LAST SEEN HER DOCTOR ABOUT 2 WEEKS AGO. PATIENT AGREED FOR ANGEL LUIS TO MAKE HER FOLLOW UP APPOINTMENT; WITH PRIMARY DOCTOR AFTER SHE DISCHARGES FROM [facility]. PATIENT STATED THAT HER DAUGHTER JEREMY RAZO WILL BE ASSISTING HER WITH TRANSPORTATION BACK HOME WHEN SHE IS READY FOR DISCHARGE. SW WILL FOLLOW UP WITH PATIENT NEEDED.
[2022-04-15 16:00] VITALS: BP 136/67
--- NOTE | 2022-04-15 17:09 | NUR ---
PT CALLED AND ASKED IF DR HAD CHANGED DILAUDID TO IV PUSH. INFORMED PT THAT NO, ORDER STILL STANDS FOR DILAUDID PO. PT UPSET STATING "IT DOESNT WORK ON ME. I NEED IT IV." REMINDED PT THAT THIS ORDER WAS CHANGED BY THE DR THIS MORNING. ORDER STANDS IS. PT UPSET. WILL CONTINUE TO MONITOR.
--- NOTE | 2022-04-15 17:40 | NUR ---
04/15/2022 RD INITIAL ASSESSMENT COMPLETED. PLEASE REFER TO NUTRITION ASSESSMENT UNDER CARE ACTIVITY FOR ESTIMATED NUTRITIONAL NEEDS. 1.WHEN/IF MEDICALLY APPROPRIATE, RECOMMEND REGULAR DIET PT TOLERATES. 2.MONITOR LAB VALUES 3.RD TO FOLLOW UP IN 3-5 DAYS, PT IS MODERATE RISK. EDISON VARELA, RD
--- NOTE | 2022-04-15 18:23 | NUR ---
PT COMPLAINING OF PAIN. MEDICATED PER MD ORDER. WILL CONTINUE TO MONITOR.
--- NOTE | 2022-04-15 19:22 | NUR ---
ENDORSED PT TO RN REVIEW NURSE FOR CONTINUITY OF CARE. PT IS STABLE.
--- NOTE | 2022-04-15 19:25 | NUR ---
BEDSIDE REPORTING DONE WITH OUTGOING NURSE, PATIENT IS AWAKE, ALERT AND ORIENTED.X 4. NO ACUTE RESPIRATORY DISTRESS NOTED. NO COMPLAINTS OF PAIN AT THIS TIME. SKIN WARM AND DRY TO TOUCH. BED IN THE LOWEST AND LOCKED POSITION FOR SAFETY, CALL LIGHT WITHIN REACH, ENCOURAGED TO CALL IF ASSISTANCE IS NEEDED, PT VERBALLY AGREED. WILL CONTINUE TO MONITOR.
[2022-04-15] MEDS: ZOLPIDEM 10 MG TAB PO SCH (21:03)
--- NOTE | 2022-04-15 21:30 | NUR ---
PATIENT AMBULATED TO THE BATHROOM AND BACK TO BED WITH MODERATE ASSISTANCE. PERINEAL CARE RENDERED BY PATIENT. NEW PUREWICK PROVIDED. PROVIDED WARM BLANKET AND MADE COMFORTABLE IN BED. CALL LIGHT REMAINED WITHIN REACH.
--- NOTE | 2022-04-16 00:33 | NUR ---
PATIENT IS ASLEEP. NO S/SX OF DISCOMFORT NOTED. CALL LIGHT REMAINED WITHIN REACH.
[2022-04-16] MEDS: NACL 0.9% 1,000 ML IV SCH ×2 (01:35→14:38)
[2022-04-16] MEDS: HYDROmorphone 2 MG TAB PO PRN ×4 (01:36→16:52)
[2022-04-16] MEDS: oxyCODONE/APAP 5/325 MG 1 TAB TAB PO PRN ×2 (04:05→10:05)
[2022-04-16] MEDS: tiZANidine 4 MG TAB PO SCH ×2 (05:09→12:37)
[2022-04-16 05:20] LABS: BASOPHILS # (AUTO) 0.1 K/uL (0.00-0.22); BASOPHILS % (AUTO) 1.1 % (0.0-2.0); EOSINOPHILS # (AUTO) 0.2 K/uL (0-0.4); EOSINOPHILS % (AUTO) 3.1 % (0.0-4.0); HEMATOCRIT 29.5 % (36-48); HEMOGLOBIN 9.8 g/dL (12.0-16.0); LYMPHOCYTES # (AUTO) 2.5 K/uL (2.5-16.5); LYMPHOCYTES % (AUTO) 49.9 % (20.5-51.1); MEAN CORPUSCULAR HEMOGLOBIN 29 pg (27-31); MEAN CORPUSCULAR HGB CONC 33 g/dL (33-37); MEAN CORPUSCULAR VOLUME 85.8 fL (80-94); MONOCYTES # (AUTO) 0.2 K/uL (0.8-1.0); NEUTROPHILS # (AUTO) 2.1 K/uL (1.8-7.7); NEUTROPHILS % (AUTO) 41.9 % (42.2-75.2); PLATELET COUNT (AUTO) 428 K/uL (140-450); RED BLOOD CELL COUNT(AUTO) 3.44 MIL/uL (4.20-5.40)
[2022-04-16 05:29] LABS: ANION GAP 12.5 (8-16); CARBON DIOXIDE 22.2 mmol/L (21-32); CREATININE 0.8 mg/dL (0.6-1.3); POTASSIUM 3.7 mmol/L (3.5-5.1)
--- NOTE | 2022-04-16 06:12 | NUR ---
PATIENT IS ASLEEP. NO S/SX OF PAIN NOTED. ALL NEEDS ATTENDED TO. SAFETY PRECAUTIONS MAINTAINED DURING THE SHIFT. CALL LIGHT REMAINED WITHIN REACH. WILL ENDORSE CARE TO AM RN.
--- NOTE | 2022-04-16 07:28 | NUR ---
RECEIVED REPORT FROM SPORTS BOOK BOARD ATTENDANT NURSE FOR CONTINUITY OF CARE. PT ASLEEP IN BED, BREATHING SYMMETRICAL ON ROOM AIR. FLACC O. TAVON MIDLINE DOUBLE LUMEN WITH NS AT 80CC/HR. CALL LIGHT WITHIN REACH. ALL SAFETY MEASURES IN PLACE.
--- NOTE | 2022-04-16 07:34 | NUR ---
ENDORSED - PT -STABLE
[2022-04-16 08:00] VITALS: BP 156/95
[2022-04-16] MEDS: PREGABALIN 25 MG CAP PO SCH (08:35)
[2022-04-16] MEDS: TOPIRAMATE 100 MG TAB PO SCH (08:35)
[2022-04-16] MEDS: HYDROXYUREA 500 MG CAP PO SCH (08:36)
[2022-04-16] MEDS ORDERED: SENN-74 PO (08:38)
[2022-04-16] MEDS ORDERED: DOCU-299 PO (08:38)
[2022-04-16] MEDS: ENOXAPARIN 40 MG/0.4 ML SYR SUBQ SCH (08:40)
[2022-04-16] MEDS: SENNA 8.6 MG TAB PO SCH (08:41)
--- NOTE | 2022-04-16 08:41 | NUR ---
SCHEDULED AM MEDICATIONS GIVEN ORDERED. PT REFUSED SENNA. PRN DILAUDED GIVEN FOR C/O GENERALIZED BODY PAIN 08/05, PT HAS SICKLE CELL DISEASE
--- NOTE | 2022-04-16 09:00 | NUR ---
PT SEEN BY DR MCGEE
--- NOTE | 2022-04-16 11:12 | NUR ---
DC PLANNING: THE PATIENT TRANSFERRED FROM [facility] WITH C/O SICKLE CELL CRISIS, PAIN AND BODY ACHES. ADMITTED FOR PAIN MANAGEMENT, ORDERS FOR IVF'S, TYLENOL, DILAUDID, LYRICA, PERCOCET AND AMBIEN. THE PATIENT LIVES WITH HER FATHER AND HAS TWO DAUGHTERS, ONE OF WHOM IS HER [facility] CAREG[employer]. THE PATIENT IS INDEPENDENT IN ADLS AND AMBULATION AND HAS DME OF A WC. HER PMD IS DR FARIAS IN [facility] AND SHE WILL BE SEEING A NEW PAIN MANAGEMENT MD ON MAY 14 WITH THE [facility] IN [facility]. THE PATIENT WILL DC TO HOME TODAY BUT STATES SHE IS OUT OF PAIN MEDICATIONS AND HER FORMER PAIN MANAGEMENT MD WILL NOT REFILL HER PRESCRIPTION. CARLO SPOKE WITH DR FARIAS BY PHONE, DR FARIAS REFILLED THE PATIENTS PERCOCET PRESCRIPTION ON March, [address] MCGEE AWARE, HE WILL DC PATIENT. CARLO ALSO SPOKE WITH THE PATIENT REGARDING HER RECENT PRESCRIPTION REFILL AND INELIGIBILITY FOR REFILL AT THIS TIME. ENCOURAGED HER TO SEE HER NEW PAIN MANAGEMENT DOCTOR SCHEDULED FOR MANAGEMENT. CM WILL FOLLOW.
[2022-04-16 11:20] VITALS: BP 156/95
[2022-04-16] MEDS ORDERED: PYR100 PO (11:27)
--- NOTE | 2022-04-16 11:30 | NUR ---
PT FOR DISCHARGE AND AWARE. PER PT HER SON WILL PICK HER UP BUT HE'S AT WORK RIGHT NOW AND WILL GET OFF WORK AT 7PM, OFFERED UBER RIDE BUT PT REFUSED AND STATES WILL WAIT FOR HER SON TO PICK HER UP.
--- NOTE | 2022-04-16 14:30 | NUR ---
PT AWAKE IN BED. BREATHING SYMMETRICAL ON ROOM AIR. STILL C/O GENERALIZED PAIN 05/05. CALL LIGHT WITHIN REACH
[2022-04-16 16:00] VITALS: BP 140/85
--- NOTE | 2022-04-16 16:58 | NUR ---
PER PT, SON WILL PICK HER UP BEFORE 7PM OR A LITTLE PAST 7PM.
--- NOTE | 2022-04-16 18:37 | NUR ---
PT STATED HER DAUGHTER WILL PICK HER UP AND IS ON THE WAY. TAVON MIDLINE 2 LUMEN REMOVED, CATHETER INTACT, NO RESISTANCE MET. NO ACTIVE BLEEDING, PT TOLERATED WELL.
--- NOTE | 2022-04-16 19:17 | NUR ---
ENDORSED PT TO [facility] THERAPIST NURSE, AWAITING SUPERVISING FLOORPERSON BY DAUGHTER FOR DISCHARGE
--- NOTE | 2022-04-16 19:50 | NUR ---
DISCHARGED PT HOME DAUGHTER AT THE BEDSIDE. DISCHARGE INSTRUCTIONS GIVEN AND EXPLAINED BY YINKA DUMAS. ALL BELONGINGS WITH PATIENT. NO DISTRESS NOTED. IV REMOVED BY YINKA DUMAS.
== END 2022-04-16 19:55 | disposition home or self-care (01) | DRG 662 ==
LOC: MTU 20:05
PROVIDERS: ADMIT Student in an Organized Health Care Education/Training Program; ATTEND Student in an Organized Health Care Education/Training Program
DX: D57.00 Hb-SS disease with crisis, unspecified (principal); E83.51 Hypocalcemia; E87.6 Hypokalemia; E83.42 Hypomagnesemia; M54.9 Dorsalgia, unspecified; I10 Essential (primary) hypertension; G89.4 Chronic pain syndrome; Z88.5 Allergy status to narcotic agent; Z88.8 Allergy status to other drugs, medicaments and biological substances; Z79.899 Other long term (current) drug therapy
CPT/HCPCS: 36415; 80048; 83735; 85025; 85045; 87081; 97163-GP; J0696; J1170; J1650; J3475; J3480; J7060

== ENCOUNTER 2022-06-07 00:24 | Emergency (ER) | payer OTHER ==
[~2022-06-07] VITALS: Ht 170.2 cm; Wt 95.3 kg
[~2022-06-07 00:24] MED LIST changes: +DOCU-299 PO; +PYR100 PO; +SENN-74 PO
[2022-06-07 00:27] VITALS: BP 178/127
--- NOTE | 2022-06-07 04:58 | NUR ---
PT RETURN FROM RADIOLOGY
--- NOTE | 2022-06-07 05:15 | NUR ---
PT TAKEN TO CHAIR A
[2022-06-07] MEDS ORDERED: fentaNYL citrate 0.05 MG/ML VIAL IVP ONE (05:25)
--- NOTE | 2022-06-07 06:36 | NUR ---
PT MOVED TO ER BED 8
--- NOTE | 2022-06-07 06:51 | NUR ---
DR. AQUINO NOTIFIED PT DECLINING FENTANYL. PT STATES SHE DOESN'T LIKE THE WAY IT MAKES HER FEEL.
[2022-06-07] MEDS ORDERED: KETOROLAC 30 MG/ML VIAL IVP ONE (07:15)
--- NOTE | 2022-06-07 07:15 | NUR ---
Lab at bedside
--- NOTE | 2022-06-07 07:26 | NUR ---
Report and continuation of care received from PITER Mejias.
--- NOTE | 2022-06-07 07:26 | NUR ---
Received patient resting in position of comfort in semi-fowlers position. Patient reports sternal chest pain, epigastric pain, body aches, headache began 1-2 days ago. Pt reports 10/10, pressure/constant, non-radiating sternal pain. Denies fever, chills, n/v/d, dysuria. cardiac monitor in place. Bed locked in lowest position, side rails x 1. PMH: sickle cell Meds: see list Allergies: atorvastatin, baclofen, morphine, advair Sx: cholecystectomy, appendectomy, hysterectomy, hernia repair, gastric bypass
--- NOTE | 2022-06-07 07:26 | NUR ---
Pt report given to LONG. Transfer of care at this time.
[2022-06-07 07:42] LABS: BASOPHILS # (AUTO) 0.1 K/uL (0.00-0.22); BASOPHILS % (AUTO) 1.1 % (0.0-2.0); EOSINOPHILS # (AUTO) 0.1 K/uL (0-0.4); EOSINOPHILS % (AUTO) 2.1 % (0.0-4.0); HEMATOCRIT 37.6 % (36-48); HEMOGLOBIN 12.2 g/dL (12.0-16.0); LYMPHOCYTES # (AUTO) 2.5 K/uL (2.5-16.5); LYMPHOCYTES % (AUTO) 41.4 % (20.5-51.1); MEAN CORPUSCULAR HEMOGLOBIN 27 pg (27-31); MEAN CORPUSCULAR HGB CONC 33 g/dL (33-37); MEAN CORPUSCULAR VOLUME 83.4 fL (80-94); MONOCYTES # (AUTO) 0.4 K/uL (0.8-1.0); MONOCYTES % (AUTO) 6.3 % (1.7-9.3); NEUTROPHILS % (AUTO) 49.1 % (42.2-75.2); PLATELET COUNT (AUTO) 444 K/uL (140-450); RED BLOOD CELL COUNT(AUTO) 4.51 MIL/uL (4.20-5.40); WHITE BLOOD COUNT (AUTO) 6.1 K/uL (4.8-10.8)
--- NOTE | 2022-06-07 07:51 | NUR ---
Meds: Benadryl 25 Mg QPM Percocet 10-325 mg T QID PRN Ambien 10 Mg DAILY Hydrea 500 Mg DAILY Topamax 100 Mg DAILY Zanaflex 4 Mg DAILY Lyrica 75Mg BID Omperazole 40mg DAILY Trazodone 100mg EVENING
--- NOTE | 2022-06-07 08:17 | NUR ---
Patient states 10/10 pain without relief after Toradol IVP.
--- NOTE | 2022-06-07 08:32 | NUR ---
Dr. Arvizu made aware of pain 08/05; patient requesting Morphine. I asked patient with morphine as a listed allergy on her chart in which she states "I don't know why that is on my chart; I have taken morphine in the past and last took it a few months ago. I don't want Fentanyl because it makes me feel weird. I have to take Benadryl with any narcotics so I am OK with morphine as long as I take it with benadryl." Dr. Arvizu made aware of patient's request and orders to be placed.
--- NOTE | 2022-06-07 08:34 | NUR ---
Patient states she has transportation home; "I have family I can call once I go home."
[2022-06-07] MEDS ORDERED: MORPHINE SULFATE 10 MG/ML VIAL IVP ONE ×2 (08:35→10:30)
[2022-06-07 08:45] LABS: ALBUMIN 3.8 g/dL (3.4-5.0); ANION GAP 19.4 (8-16); ASPARTATE AMINOTRANSFERASE 24 U/L (15-37); CHLORIDE 106 mmol/L (98-107); CREATININE 0.8 mg/dL (0.6-1.3); GFR ARICAN-AMERICAN 100 mL/min (>90); GLUCOSE 96 mg/dL (74-106); LIPASE 123 U/L (73-393); POTASSIUM 3.4 mmol/L (3.5-5.1); SODIUM SERUM 140 mmol/L (136-145); TOTAL BILIRUBIN 0.2 mg/dL (0.0-1.0); UREA NITROGEN, BLOOD 15 mg/dL (7-18)
--- NOTE | 2022-06-07 08:52 | NUR ---
Dr. Arvizu is reevaluating pt at bedside
[2022-06-07 10:08] LABS: APPEARANCE,URINE CLEAR (CLEAR); BILIRUBIN,URINE NEGATIVE (NEGATIVE); BLOOD, URINE NEGATIVE (NEGATIVE); COLOR,URINE YELLOW (YELLOW); LEUKOCYTE ESTERASE ,URINE 1+ (NEGATIVE); NITRITE, URINE NEGATIVE (NEGATIVE); PH,URINE 6.5 (5.0-9.0); UGLUCOSE NEGATIVE (NEGATIVE)
[2022-06-07 10:18] LABS: RBC,URINE 0-5 /HPF (0-5)
[2022-06-07] MEDS ORDERED: CEPH500T PO (10:23)
[2022-06-07] MEDS ORDERED: hydrALAZINE 20 MG/ML VIAL IVP ONE (10:25)
--- NOTE | 2022-06-07 11:05 | NUR ---
Pt states minor relief to pain 06/05. Pt clear for dischrage per Dr. Arvizu.
[2022-06-07 11:09] VITALS: BP 170/100
--- NOTE | 2022-06-07 11:09 | NUR ---
Patient discharged with v/s stable. Written and verbal after care instructions given and explained. Patient alert, oriented and verbalized understanding of instructions. Wheel Chair Assisted to lobby with family in lobby for transportation home. All questions addressed prior to discharge. ID band removed. Patient advised to follow up with PMD. Rx of Keflex given. Patient educated on indication of medication including possible reaction and side effects. Opportunity to ask questions provided and answered.
== END 2022-06-07 11:09 | disposition home or self-care (01) ==
LOC: MED 00:24
DX: R07.9 Chest pain, unspecified (principal); J45.909 Unspecified asthma, uncomplicated; I10 Essential (primary) hypertension; E11.9 Type 2 diabetes mellitus without complications; Z79.4 Long term (current) use of insulin; Z79.899 Other long term (current) drug therapy; Z88.5 Allergy status to narcotic agent; Z88.8 Allergy status to other drugs, medicaments and biological substances; Z90.710 Acquired absence of both cervix and uterus; Z98.890 Other specified postprocedural states
CPT/HCPCS: 36415; 71045; 80053; 81001; 81025; 83690; 84484; 85025; 85045; 87086; 93005; 96374; 96375; 96376; 99285; J0360; J1885; J2270; J3010; Q0163